=== PATIENT | female | born 1955 | race American Indian/Alaskan Native ===

== ENCOUNTER 2019-12-14 00:23 | Observation (INO) | payer OTHER ==
--- NOTE | 2019-12-14 00:56 | Emergency Department Report ---
ED Psych HPI - General Chief Complaint: Altered Mental Status Stated Complaint: AMS Time Seen by Provider: 12/14/19 00:48 Source: EMS Mode of arrival: Ambulatory Limitations: Altered Mental Status - History of Present Illness Initial Comments: This is a middle-aged appearing female who was found wandering up and down the road by Police officers. Police officers contacted EMS to transport patient. Patient asked to be taken to the nearest hospital. Upon arrival patient refuses to give any history. MD Complaint: altered mental status -: unknown Quality: constant Improves With: none Worsens With: none Context: other (Patient refused to give history) Treatments Prior to Arrival: none - Related Data Allergies Allergy/AdvReac Type Severity Reaction Status Date / Time Unable to Assess Allergy Unverified 12/14/19 00:29 ED Review of Systems ROS: Stated complaint: AMS Other details as noted in HPI Comment: Unobtainable due to pts medical conditions (Patient will not cooperate with history taking) ED Past Medical Hx - Past Medical History Additional medical history: uanble to obtain - Surgical History Additional Surgical History: unable to obtain - Social History Smoking Status: Unknown if ever smoked ED Physical Exam - General Limitations: Altered Mental Status General appearance: alert, in no apparent distress, other (She has purposeful movement. She pushes my hand away while attempting to examine her. She refuses to make eye contact. Disheveled hair. Dirty clothing.) - Head Head exam: Present: atraumatic, normocephalic - Eye Eye exam: Present: normal appearance. Absent: scleral icterus, conjunctival injection - ENT ENT exam: Present: mucous membranes moist - Neck Neck exam: Present: normal inspection, full ROM - Respiratory Respiratory exam: Present: normal lung sounds bilaterally. Absent: respiratory distress, wheezes, rales, rhonchi - Cardiovascular Cardiovascular Exam: Present: regular rate, normal rhythm. Absent: systolic murmur, diastolic murmur, rubs, gallop - GI/Abdominal GI/Abdominal exam: Present: soft, normal bowel sounds. Absent: distended, tenderness, guarding, rebound - Extremities Exam Extremities exam: Present: normal inspection - Neurological Exam Neurological exam: Present: alert, altered - Psychiatric Psychiatric exam: Present: flat affect - Skin Skin exam: Present: warm, dry, intact, normal color. Absent: rash ED Course Vital Signs 12/14/19 00:39 Respiratory 18 Rate - Reevaluation(s) Reevaluation #1: 12/14/19 01:48 I have observed patient responding to internal stimuli. She is speaking to persons that are not in here vicinity. Reevaluation #2: 12/14/19 02:35 On reexamination, patient is laying on stretcher semiupright She is looking to the right talking to someone who was not in the room. Reevaluation #3: 12/14/19 03:32 After IM ziprasidone, patient is awake. She makes eye contact. She has purposeful movement. However she is still nonverbal. ED Medical Decision Making - Lab Data Result diagrams: 12/14/19 01:15 12/14/19 01:15 - Medical Decision Making This is a middle-aged appearing female who presents with odd behavior. She presented without identification. She was ambulatory according to knot tying operator report. She spoke to paramedics requesting to go to the nearest hospital. She refuses to give history or speak to ED staff. I suspect illicit drug use versus acute exacerbation of psychiatric condition. She does not appear to be in any distress. Work-up revealed profound leukocytosis, prerenal azotemia. Differential diagnosis includes sepsis, leukemoid reaction to illicit drug or prescribed medication, hematological malignancy. I have requested consultation by case management and our psychiatric team for assistance and possible collateral history. After extensive investigation by nursing instrument repairer steam plant, we have identified patient as Keara Morrow. Patient was identified after 3 hours of observation in the emergency department. Patient has a history of dementia schizophrenia according to personal-shelterhome based assistant. Patient had wandered from personal shelter. Missing persons report was filed. According to the personal shelterhome based assistant, patient has not been talking or eating. She is not taking her psychiatric medications. I reviewed discharge summary from July. Patient was admitted to our geriatric psych unit. She had similar presentation. Patient had leukocytosis at that time. I suspect leukemoid reaction caused by psych otropic medications. Acute kidney injury caused by volume contraction decreased p.o. intake. Patient admitted to the hospital service in stable condition. After patient received Geodon lorazepam diphenhydramine, she is more conversant. She is asking appropriate questions. She has been more cooperative with nursing staff. Critical care attestation.: If time is entered above; I have spent that time in minutes in the direct care of this critically ill patient, excluding procedure time. ED Disposition Clinical Impression: Acute psychosis, Leukemoid reaction, Prerenal acute renal failure, Schizophrenia, Dementia Disposition: DC-[id number] OP ADMIT IP TO THIS HOSP Is pt being admited?: Yes Does the pt Need Aspirin: No Condition: Stable
[2019-12-14 01:55] LABS: Hematocrit 43.2 % (30.3-42.9); Hemoglobin 13.9 gm/dl (10.1-14.3); Mean Corpuscular HGB Conc 32 % (30-34); Mean Corpuscular Volume 93 fl (79-97); Platelet Count 124 K/mm3 (140-440); Red Blood Count 4.65 M/mm3 (3.65-5.03); Red Cell Distribution Width 15.5 % (13.2-15.2)
[2019-12-14 02:02] LABS: Calcium 10.5 mg/dL (8.4-10.2)
[2019-12-14] MEDS ORDERED: ZIPRASIDONE MESYLATE 20 MG VIAL IM ONE (02:30)
[2019-12-14] MEDS ORDERED: VANCOMYCIN/NS 1 GM/250 ML 1 GM/250 ML BAG IV ONE (02:31)
[2019-12-14] MEDS ORDERED: SODIUM CHLORIDE 0.9% 1000 ML 1,000 ML IV ONE ×2 (02:41)
--- NOTE | 2019-12-14 02:56 | XRay Report ---
CHEST 1 VIEW INDICATION / CLINICAL INFORMATION: altered mental status leukocytosis. COMPARISON: None available. FINDINGS: SUPPORT DEVICES: None. HEART / MEDIASTINUM: No significant abnormality. LUNGS / PLEURA: No significant pulmonary or pleural abnormality. No pneumothorax. ADDITIONAL FINDINGS: No significant additional findings. IMPRESSION: 1. No acute findings. Signer Name: Torrie Peacock MD Signed: 12/14/2019 2:51 AM Workstation Name: [id number]
[2019-12-14] MEDS ORDERED: AMPICILLIN/NS 2 GM/100 ML 2 GM/100 ML BAG IV SCH ×2 (03:00)
[2019-12-14] MEDS ORDERED: cefTRIAXone/NS 2 GM/100 ML 2 GM/100 ML BAG IV SCH (03:00)
[2019-12-14] MEDS ORDERED: VANCOMYCIN PHARMACY TO DOSE IV SCH (03:00)
[2019-12-14 03:23] LABS: Alanine Aminotransferase 10 units/L (7-56); Albumin 4.8 g/dL (3.9-5); Bilirubin,Direct < 0.2 mg/dL (0-0.2)
[2019-12-14 03:25] LABS: Partial Thromboplastin Time 28.6 Sec. (24.2-36.6)
[2019-12-14] MEDS ORDERED: diphenhydrAMINE 50 MG/ML VIAL IM ONE (03:32)
[2019-12-14] MEDS ORDERED: LORazepam 2 MG/ML VIAL IV ONE (03:32)
[2019-12-14] MEDS ORDERED: LORazepam 2 MG/ML VIAL IM ONE (03:33)
[2019-12-14 05:32] LABS: Anisocytosis 1+; Basophils % (Manual) 0 % (0.0-1.8); Eosinophils % (Manual) 0 % (0.0-4.3); Monocytes % (Manual) 3.5 % (0.0-7.3); Total Cells Counted 200
[2019-12-14 05:33] LABS: Platelet Estimate Consistent w Auto
[2019-12-14] MEDS ORDERED: ONDANSETRON 4 MG/2 ML INJ IV PRN (07:50)
[2019-12-14] MEDS ORDERED: ACETAMINOPHEN 325 MG TAB PO PRN (07:50)
[2019-12-14] MEDS ORDERED: ALBUTEROL 2.5 MG/3 ML NEBU IH PRN (07:50)
--- NOTE | 2019-12-14 07:55 | History and Physical Report ---
History of Present Illness Date of examination: 12/14/19 Date of admission: 12/14/19 04:17 Chief complaint: AMS History of present illness: Patient is a 64 year old female with past medical hx of schizophrenia, Bipolar, paranoid, catatonic type, dementia. She has had multiple bouts of admissions to multiple hospitals including [facility], with [facility], [facility], there was also concern in her few years that she may have leukemia although unfortunately has not been followed by any manager of radiology as the recommendation from Dr. FE Ro could not be carried out as patient does not have an ID card. Per caregiver the patient left the house and they had filed a missing piece present report. The patient was subsequently found wandering up and down the road by Police officers. Police officers contacted EMS to transport patient. Patient asked to be taken to the nearest hospital. Upon arrival patient refuses to give any history. And according to the ED physician After extensive investigation by nursing steam hand, we have identified patient as Keara Morrow. Patient was identified after 3 hours of observation in the emergency department. Patient has a history of dementia schizophrenia according to personal-half-wayhomebirth midwife. Patient had wandered from personal half-way. Missing persons report was filed. According to the personal half-wayhomebirth midwife, patient has not been talking or eating. She is not taking her psychiatric medications. I reviewed discharge summary from July. Patient was admitted to our geriatric psych unit. She had similar presentation. Patient had leukocytosis at that time. I suspect leukemoid reaction caused by psychotropic medications. Acute kidney injury caused by volume contraction decreased p.o. intake. Patient admitted to the hospital service in stable condition. After patient received Geodon lorazepam diphenhydramine, she is more conversant. She is asking appropriate questions. She has been more cooperative with nursing staff. Were called to admit the patient as WBC was significantly elevated and there was concern for severe dehydration. On my discussion with the patient she refused to answer any questions. I did call the provider myself she will be sending records over. But does tell me that the patient Has had multiple bouts of acute exacerbation of her psychiatric conditions. She normally will do well after 1 week post hospitalization and they refused to take the medication stating that she is competent to stop medications. She believes that the patient hears voices as the patient would often tell her that she was informed to do certain things. She is unable to inform me of any suicidal attempt in the past. she informs me that the patient has 2 grown children and a grandmother but does not have the information readily available with her Past History Past Medical History: other (Bipolar disorder, schizophrenia, paranoid, catatonic) Past Surgical History: No surgical history Social history: no significant social history, full code Family history: no significant family history Medications and Allergies Allergies Allergy/AdvReac Type Severity Reaction Status Date / Time No Known Allergies Allergy Verified 12/14/19 06:13 Active Meds: Active Medications Acetaminophen (Tylenol) 650 mg PO Q4H PRN PRN Reason: Pain MILD(1-3)/Fever >100.5/SMART Albuterol (Proventil) 2.5 mg IH Q4HRT PRN PRN Reason: Shortness Of Breath Bisacodyl (Dulcolax) 10 mg [place] QDAY PRN PRN Reason: Constipation unrelieved by MOM Sodium Chloride (Nacl 0.9% 1000 Ml) 1,000 mls @ 0 mls/hr IV ONCE MELISSA Stop: 12/15/19 08:01 Ondansetron HCl (Zofran) 4 mg IV Q8H PRN PRN Reason: Nausea And Vomiting Sodium Chloride (Sodium Chloride Flush Syringe 10 Ml) 10 ml IV PRN PRN PRN Reason: LINE FLUSH Review of Systems ROS unobtainable: due to mental status Exam - Physical Exam Narrative exam: VITAL SIGNS: Reviewed. GENERAL: The patient appears normally developed, position not answering question vital signs as documented. HEAD: No signs of head trauma. EYES: Pupils are equal. Extraocular motions intact. EARS: Hearing grossly intact. MOUTH: Oropharynx is normal. NECK: No adenopathy, no JVD. CHEST: Chest with diminished breath sounds bilaterally. No wheezes, rales, or rhonchi. CARDIAC: Regular rate and rhythm. S1 and S2, without murmurs, gallops, or rubs. VASCULAR: No Edema. Peripheral pulses normal and equal in all extremities. ABDOMEN: Soft, non tender and non distended. No rebound or guarding, and no masses palpated. Bowel Sounds normal. MUSCULOSKELETAL: Good range of motion of all major joints. Extremities without clubbing, cyanosis or edema. NEUROLOGIC EXAM: Awake but not following any commands. No focal sensory or strength deficits. PSYCHIATRIC: Mood catheter SKIN: Well-healed laceration over the left eyelid detail exam as documented in skin assessment - Constitutional Vitals: Temp Pulse Resp BP Pulse Ox 97.9 F 80 16 115/64 97 12/14/19 04:24 12/14/19 05:00 12/14/19 05:00 12/14/19 06:00 12/14/19 06:00 Results - Labs CBC & Chem 7: 12/14/19 01:15 12/14/19 01:15 Labs: Laboratory Last Values WBC 42.6 K/mm3 (4.5-11.0) H* 12/14/19 01:15 RBC 4.65 M/mm3 (3.65-5.03) 12/14/19 01:15 Hgb 13.9 gm/dl (10.1-14.3) 12/14/19 01:15 Hct 43.2 % (30.3-42.9) H 12/14/19 01:15 MCV 93 fl (79-97) 12/14/19 01:15 MCH 30 pg (28-32) 12/14/19 01:15 MCHC 32 % (30-34) 12/14/19 01:15 RDW 15.5 % (13.2-15.2) H 12/14/19 01:15 Plt Count 124 K/mm3 (140-440) L 12/14/19 01:15 Lymph % (Auto) Saw Sharpener 12/14/19 01:15 Lymph # Saw Sharpener 12/14/19 01:15 Add Manual Diff Complete 12/14/19 01:15 Total Counted 200 12/14/19 01:15 Seg Neutrophils % Saw Sharpener 12/14/19 01:15 Seg Neuts % (Manual) 9.5 % (40.0-70.0) L 12/14/19 01:15 Band Neutrophils % 0 % 12/14/19 01:15 Lymphocytes % (Manual) 85.0 % (13.4-35.0) H 12/14/19 01:15 Reactive Lymphs % (Man) 2.0 % 12/14/19 01:15 Monocytes % (Manual) 3.5 % (0.0-7.3) 12/14/19 01:15 Eosinophils % (Manual) 0 % (0.0-4.3) 12/14/19 01:15 Basophils % (Manual) 0 % (0.0-1.8) 12/14/19 01:15 Metamyelocytes % 0 % 12/14/19 01:15 Myelocytes % 0 % 12/14/19 01:15 Promyelocytes % 0 % 12/14/19 01:15 Blast Cells % 0 % 12/14/19 01:15 Nucleated RBC % Not Reportable 12/14/19 01:15 Seg Neutrophils # Man 4.0 K/mm3 (1.8-7.7) 12/14/19 01:15 Band Neutrophils # 0.0 K/mm3 12/14/19 01:15 Lymphocytes # (Manual) 36.2 K/mm3 (1.2-5.4) H 12/14/19 01:15 Abs React Lymphs (Man) 0.9 K/mm3 12/14/19 01:15 Monocytes # (Manual) 1.5 K/mm3 (0.0-0.8) H 12/14/19 01:15 Eosinophils # (Manual) 0.0 K/mm3 (0.0-0.4) 12/14/19 01:15 Basophils # (Manual) 0.0 K/mm3 (0.0-0.1) 12/14/19 01:15 Metamyelocytes # 0.0 K/mm3 12/14/19 01:15 Myelocytes # 0.0 K/mm3 12/14/19 01:15 Promyelocytes # 0.0 K/mm3 12/14/19 01:15 Blast Cells # 0.0 K/mm3 12/14/19 01:15 Hypersegmented Neuts Not Reportable 12/14/19 01:15 Hyposegmented Neuts Not Reportable 12/14/19 01:15 Hypogranular Neuts Not Reportable 12/14/19 01:15 Smudge Cells Not Reportable 12/14/19 01:15 Toxic Granulation Not Reportable 12/14/19 01:15 Toxic Vacuolation Not Reportable 12/14/19 01:15 Dohle Bodies Not Reportable 12/14/19 01:15 Pelger-Huet Anomaly Not Reportable 12/14/19 01:15 Leoncio Rods Not Reportable 12/14/19 01:15 Platelet Estimate Consistent w auto 12/14/19 01:15 Clumped Platelets Not Reportable 12/14/19 01:15 Plt Clumps, EDTA Not Reportable 12/14/19 01:15 Large Platelets Not Reportable 12/14/19 01:15 Giant Platelets Not Reportable 12/14/19 01:15 Platelet Satelliting Not Reportable 12/14/19 01:15 Plt Morphology Comment Not Reportable 12/14/19 01:15 RBC Morphology Not Reportable 12/14/19 01:15 Dimorphic RBCs Not Reportable 12/14/19 01:15 Polychromasia Not Reportable 12/14/19 01:15 Hypochromasia Not Reportable 12/14/19 01:15 Poikilocytosis Not Reportable 12/14/19 01:15 Anisocytosis 1+ 12/14/19 01:15 Microcytosis Not Reportable 12/14/19 01:15 Macrocytosis Not Reportable 12/14/19 01:15 Spherocytes Not Reportable 12/14/19 01:15 Pappenheimer Bodies Not Reportable 12/14/19 01:15 Sickle Cells Not Reportable 12/14/19 01:15 Target Cells Not Reportable 12/14/19 01:15 Tear Drop Cells Not Reportable 12/14/19 01:15 Ovalocytes Not Reportable 12/14/19 01:15 Helmet Cells Not Reportable 12/14/19 01:15 George-Adin Bodies Not Reportable 12/14/19 01:15 [place] Rings Not Reportable 12/14/19 01:15 [place] Cells Not Reportable 12/14/19 01:15 Bite Cells Not Reportable 12/14/19 01:15 Crenated Cell Not Reportable 12/14/19 01:15 Elliptocytes Not Reportable 12/14/19 01:15 Acanthocytes (Spur) Not Reportable 12/14/19 01:15 Rouleaux Not Reportable 12/14/19 01:15 Hemoglobin C Crystals Not Reportable 12/14/19 01:15 Schistocytes Not Reportable 12/14/19 01:15 Malaria parasites Not Reportable 12/14/19 01:15 Alec Bodies Not Reportable 12/14/19 01:15 Hem Pathologist Commnt Sent to pathology 12/14/19 01:15 PT 13.3 Sec. (12.2-14.9) 12/14/19 03:03 INR 1.00 (0.87-1.13) 12/14/19 03:03 APTT 28.6 Sec. (24.2-36.6) 12/14/19 03:03 Sodium 139 mmol/L (137-145) 12/14/19 01:15 Potassium 5.2 mmol/L (3.6-5.0) H 12/14/19 01:15 Chloride 97.1 mmol/L (98-107) L 12/14/19 01:15 Carbon Dioxide 22 mmol/L (22-30) 12/14/19 01:15 Anion Gap 25 mmol/L 12/14/19 01:15 BUN 46 mg/dL (7-17) H 12/14/19 01:15 Creatinine 2.0 mg/dL (0.6-1.2) H 12/14/19 01:15 Estimated GFR 26 ml/min 12/14/19 01:15 BUN/Creatinine Ratio 23 % 12/14/19 01:15 Glucose 99 mg/dL (65-100) 12/14/19 01:15 Lactic Acid 1.00 mmol/L (0.7-2.0) 12/14/19 05:09 Calcium 10.5 mg/dL (8.4-10.2) H 12/14/19 01:15 Total Bilirubin 0.30 mg/dL (0.1-1.2) 12/14/19 01:15 Direct Bilirubin < 0.2 mg/dL (0-0.2) 12/14/19 01:15 Indirect Bilirubin 0.1 mg/dL 12/14/19 01:15 AST 15 units/L (5-40) 12/14/19 01:15 ALT 10 units/L (7-56) 12/14/19 01:15 Alkaline Phosphatase 108 units/L (35-129) 12/14/19 01:15 Ammonia 22.0 umol/L (25-60) L 12/14/19 05:09 Total Creatine Kinase 45 units/L (30-135) 12/14/19 01:15 Total Protein 7.6 g/dL (6.3-8.2) 12/14/19 01:15 Albumin 4.8 g/dL (3.9-5) 12/14/19 01:15 Albumin/Globulin Ratio 1.7 % 12/14/19 01:15 Salicylates < 0.3 mg/dL (2.8-20.0) L 12/14/19 01:15 Acetaminophen 5.0 ug/mL (10.0-30.0) L 12/14/19 01:15 Plasma/Serum Alcohol < 0.01 % (0-0.07) 12/14/19 01:15 Assessment and Plan Assessment and plan: Patient is a 64 year old female with past medical hx of schizophrenia, Bipolar, paranoid, catatonic type, dementia. She has had multiple bouts of admissions to multiple hospitals including [facility], with [facility], [facility], there was also concern in her few years that she may have leukemia although unfortunately has not been followed by any manager of radiology as the recommendation from Dr. FE Ro could not be carried out as patient does not have an ID card. Per caregiver the patient left the house and they had filed a missing piece present report. The patient was subsequently found wandering up and down the road by Police officers. Police officers contacted EMS to transport patient. Patient asked to be taken to the nearest hospital. Upon arrival patient refuses to give any history. And according to the ED physician After extensive investigation by nursing steam hand, we have identified patient as Keara Morrow. Patient was identified after 3 hours of observation in the emergency department. Patient has a history of dementia schizophrenia according to personal-half-wayhomebirth midwife. Patient had wandered from personal half-way. Missing persons report was filed. According to the personal half-way mo pervisor, patient has not been talking or eating. She is not taking her psychiatric medications. I reviewed discharge summary from July. Patient was admitted to our geriatric psych unit. She had similar presentation. Patient had leukocytosis at that time. I suspect leukemoid reaction caused by psychotropic medications. Acute kidney injury caused by volume contraction decreased p.o. intake. Patient admitted to the hospital service in stable condition. After patient received Geodon lorazepam diphenhydramine, she is more conversant. She is asking appropriate questions. She has been more cooperative with nursing staff. Were called to admit the patient as WBC was significantly elevated and there was concern for severe dehydration. On my discussion with the patient she refused to answer any questions. I did call the provider myself she will be sending records over. But does tell me that the patient Has had multiple bouts of acute exacerbation of her psychiatric conditions. She normally will do well after 1 week post hospitalization and they refused to take the medication stating that she is competent to stop medications. She believes that the patient hears voices as the patient would often tell her that she was informed to do certain things. She is unable to inform me of any suicidal attempt in the past. she informs me that the patient has 2 grown children and a grandmother but does not have the information readily available with her Head CT is unremarkable Chest x-ray unremarkable Acute psychosis, Leukemoid reaction, versus leukemia Acute kidney injury likely secondary to vasomotor nephropathy Severe dehydration Schizophrenia, Dementia Hyperkalemia Hypercalcemia Elevated free T4 with normal TSH Plan Admit to telemetry Mental health consult Aggressive fluid resuscitation Repeat BMP CBC today We will review to see if new telemetry manager of radiology has resumed will give a consult to them. Restraints if needed DVT and GI prophylaxis Awaiting records from outpatient facilities to be able to restart appropriate medications. For now patient received antibiotics in the ED will not give any further antibiotics. Advance Directives: Yes Plan of care discussed with patient/family: Yes
[2019-12-14] MEDS ORDERED: SODIUM CHLORIDE 0.9% 1000 ML 1,000 ML IV SCH ×2 (08:00→12:30)
--- NOTE | 2019-12-14 08:50 | Cat Scan Report ---
CT HEAD WITHOUT CONTRAST INDICATION / CLINICAL INFORMATION: ams. TECHNIQUE: All CT scans at this location are performed using CT dose reduction for ALARA by means of automated e xposure control. COMPARISON: None available. FINDINGS: HEMORRHAGE: None. EXTRA-AXIAL SPACES: Normal in size and morphology for the patient's age. VENTRICULAR SYSTEM: Normal in size and morphology for the patient's age. CEREBRAL PARENCHYMA: No significant abnormality. No acute territorial infarct. MIDLINE SHIFT OR HERNIATION: None. CEREBELLUM / BRAINSTEM: No significant abnormality. ORBITS: Normal as visualized. SOFT TISSUES of HEAD: No significant abnormality. CALVARIUM: No significant abnormality. PARANASAL SINUSES / MASTOID AIR CELLS: Normal as visualized. ADDITIONAL FINDINGS: None. IMPRESSION: No acute intracranial abnormality. Signer Name: Aaron Riggins MD Signed: 12/14/2019 8:46 AM Workstation Name: [id number]
[2019-12-14] MEDS ORDERED: diphenhydrAMINE 25 MG CAP PO PRN (13:51)
[2019-12-14] MEDS: risperiDONE 1 MG TAB PO SCH (23:43)
[2019-12-14] MEDS: MIRTAZAPINE 15 MG TAB PO SCH (23:43)
[2019-12-14] MEDS: clonazePAM 0.5 MG TAB PO SCH (23:43)
[2019-12-15] MEDS: VENLAFAXINE XR 75 MG CAP PO SCH (11:03)
[2019-12-15] MEDS: risperiDONE 1 MG TAB PO SCH ×2 (11:04→21:33)
[2019-12-15] MEDS: clonazePAM 0.5 MG TAB PO SCH ×2 (11:04→21:33)
--- NOTE | 2019-12-15 15:08 | Progress Note ---
Assessment and Plan Assessment and plan: Patient is a 64 year old female with past medical hx of schizophrenia, Bipolar, paranoid, catatonic type, dementia. She has had multiple bouts of admissions to multiple hospitals including [facility], with [facility], [facility], there was also concern in her few years that she may have leukemia although unfortunately has not been followed by any product assembler as the recommendation from Dr. FE Ro could not be carried out as patient does not have an ID card. Per caregiver the patient left the house and they had filed a missing piece present report. The patient was subsequently found wandering up and down the road by Police officers. Police officers contacted EMS to tra nsport patient. Patient asked to be taken to the nearest hospital. Upon arrival patient refuses to give any history. And according to the ED physician After extensive investigation by nursing steam shovel oiler, we have identified patient as Keara Morrow. Patient was identified after 3 hours of observation in the emergency department. Patient has a history of dementia schizophrenia according to personal-mcchomemaking rehabilitation consultant. Patient had wandered from personal mcc. Missing persons report was filed. According to the personal mcchomemaking rehabilitation consultant, patient has not been talking or eating. She is not taking her psychiatric medications. I reviewed discharge summary from July. Patient was admitted to our geriatric psych unit. She had similar presentation. Patient had leukocytosis at that time. I suspect leukemoid reaction caused by psychotropic medications. Acute kidney injury caused by volume contraction decreased p.o. intake. Patient admitted to the hospital service in stable condition. After patient received Geodon lorazepam diphenhydramine, she is more conversant. She is asking appropriate questions. She has been more cooperative with nursing staff. Were called to admit the patient as WBC was significantly elevated and there was concern for severe dehydration. On my discussion with the patient she refused to answer any questions. I did call the provider myself she will be sending records over. But does tell me that the patient Has had multiple bouts of acute exacerbation of her psychiatric conditions. She normally will do well after 1 week post hospitalization and they refused to take the medication stating that she is competent to stop medications. She believes that the patient hears voices as the patient would often tell her that she was informed to do certain things. She is unable to inform me of any suicidal attempt in the past. The career center advisor she informs me that the patient has 2 grown children and a grandmother but does not have the information readily available with her 12/14: Remains aphasic refusing to answer questions. Flow cytometry sent out, Outpatient product assembler on discharge as arranged by previous hospital. WBC at the other facility a month ago was 44K. No other medical issues, patient is cleared for discharge to Inpatient psych or based on psych recommendation. Head CT is unremarkable Chest x-ray unremarkable Acute psychosis, Leukemoid reaction, versus leukemia Acute kidney injury likely secondary to vasomotor nephropathy Severe dehydration Schizophrenia, Dementia Hyperkalemia Hypercalcemia Elevated free T4 with normal TSH Plan Admit to telemetry Mental health consult Aggressive fluid resuscitation Repeat BMP CBC today We will review to see if new telemetry product assembler has resumed will give a consult to them. Restraints if needed DVT and GI prophylaxis Awaiting records from outpatient facilities to be able to restart appropriate medications. For now patient received antibiotics in the ED will not give any further antibiotics. History Interval history: Patient seen and examined, very agitated and refusing meds. This is not unlike she did at other hospital Hospitalist Physical - Physical exam Narrative exam: VITAL SIGNS: Reviewed. GENERAL: The patient appears normally developed, sitting up in bed and refusing to answer any question. vital signs as documented. HEAD: No signs of head trauma. EYES: Pupils are equal. Extraocular motions intact. EARS: Hearing grossly intact. MOUTH: Oropharynx is normal. NECK: No adenopathy, no JVD. CHEST: Chest with diminished breath sounds bilaterally. No wheezes, rales, or rhonchi. CARDIAC: Regular rate and rhythm. S1 and S2, without murmurs, gallops, or rubs. VASCULAR: No Edema. Peripheral pulses normal and equal in all extremities. ABDOMEN: Soft, non tender and non distended. No rebound or guarding, and no masses palpated. Bowel Sounds normal. MUSCULOSKELETAL: Good range of motion of all major joints. Extremities without clubbing, cyanosis or edema. NEUROLOGIC EXAM: Awake but not following any commands. No focal sensory or strength deficits. PSYCHIATRIC: Mood catheter SKIN: Well-healed laceration over the left eyelid detail exam as documented in skin assessment - Constitutional Vitals: Temp Pulse Resp BP Pulse Ox 97.8 F 73 16 117/82 98 12/14/19 22:02 12/14/19 22:02 12/14/19 22:02 12/14/19 22:02 12/15/19 10:50 Results - Labs CBC & Chem 7: 12/14/19 01:15 12/14/19 01:15 Labs: Laboratory Last Values WBC 42.6 K/mm3 (4.5-11.0) H* 12/14/19 01:15 RBC 4.65 M/mm3 (3.65-5.03) 12/14/19 01:15 Hgb 13.9 gm/dl (10.1-14.3) 12/14/19 01:15 Hct 43.2 % (30.3-42.9) H 12/14/19 01:15 MCV 93 fl (79-97) 12/14/19 01:15 MCH 30 pg (28-32) 12/14/19 01:15 MCHC 32 % (30-34) 12/14/19 01:15 RDW 15.5 % (13.2-15.2) H 12/14/19 01:15 Plt Count 124 K/mm3 (140-440) L 12/14/19 01:15 Lymph % (Auto) Derrick Boat Operator 12/14/19 01:15 Lymph # Derrick Boat Operator 12/14/19 01:15 Add Manual Diff Complete 12/14/19 01:15 Total Counted 200 12/14/19 01:15 Seg Neutrophils % Derrick Boat Operator 12/14/19 01:15 Seg Neuts % (Manual) 9.5 % (40.0-70.0) L 12/14/19 01:15 Band Neutrophils % 0 % 12/14/19 01:15 Lymphocytes % (Manual) 85.0 % (13.4-35.0) H 12/14/19 01:15 Reactive Lymphs % (Man) 2.0 % 12/14/19 01:15 Monocytes % (Manual) 3.5 % (0.0-7.3) 12/14/19 01:15 Eosinophils % (Manual) 0 % (0.0-4.3) 12/14/19 01:15 Basophils % (Manual) 0 % (0.0-1.8) 12/14/19 01:15 Metamyelocytes % 0 % 12/14/19 01:15 Myelocytes % 0 % 12/14/19 01:15 Promyelocytes % 0 % 12/14/19 01:15 Blast Cells % 0 % 12/14/19 01:15 Nucleated RBC % Not Reportable 12/14/19 01:15 Seg Neutrophils # Man 4.0 K/mm3 (1.8-7.7) 12/14/19 01:15 Band Neutrophils # 0.0 K/mm3 12/14/19 01:15 Lymphocytes # (Manual) 36.2 K/mm3 (1.2-5.4) H 12/14/19 01:15 Abs React Lymphs (Man) 0.9 K/mm3 12/14/19 01:15 Monocytes # (Manual) 1.5 K/mm3 (0.0-0.8) H 12/14/19 01:15 Eosinophils # (Manual) 0.0 K/mm3 (0.0-0.4) 12/14/19 01:15 Basophils # (Manual) 0.0 K/mm3 (0.0-0.1) 12/14/19 01:15 Metamyelocytes # 0.0 K/mm3 12/14/19 01:15 Myelocytes # 0.0 K/mm3 12/14/19 01:15 Promyelocytes # 0.0 K/mm3 12/14/19 01:15 Blast Cells # 0.0 K/mm3 12/14/19 01:15 Hypersegmented Neuts Not Reportable 12/14/19 01:15 Hyposegmented Neuts Not Reportable 12/14/19 01:15 Hypogranular Neuts Not Reportable 12/14/19 01:15 Smudge Cells Not Reportable 12/14/19 01:15 Toxic Granulation Not Reportable 12/14/19 01:15 Toxic Vacuolation Not Reportable 12/14/19 01:15 Dohle Bodies Not Reportable 12/14/19 01:15 Pelger-Huet Anomaly Not Reportable 12/14/19 01:15 Leoncio Rods Not Reportable 12/14/19 01:15 Platelet Estimate Consistent w auto 12/14/19 01:15 Clumped Platelets Not Reportable 12/14/19 01:15 Plt Clumps, EDTA Not Reportable 12/14/19 01:15 Large Platelets Not Reportable 12/14/19 01:15 Giant Platelets Not Reportable 12/14/19 01:15 Platelet Satelliting Not Reportable 12/14/19 01:15 Plt Morphology Comment Not Reportable 12/14/19 01:15 RBC Morphology Not Reportable 12/14/19 01:15 Dimorphic RBCs Not Reportable 12/14/19 01:15 Polychromasia Not Reportable 12/14/19 01:15 Hypochromasia Not Reportable 12/14/19 01:15 Poikilocytosis Not Reportable 12/14/19 01:15 Anisocytosis 1+ 12/14/19 01:15 Microcytosis Not Reportable 12/14/19 01:15 Macrocytosis Not Reportable 12/14/19 01:15 Spherocytes Not Reportable 12/14/19 01:15 Pappenheimer Bodies Not Reportable 12/14/19 01:15 Sickle Cells Not Reportable 12/14/19 01:15 Target Cells Not Reportable 12/14/19 01:15 Tear Drop Cells Not Reportable 12/14/19 01:15 Ovalocytes Not Reportable 12/14/19 01:15 Helmet Cells Not Reportable 12/14/19 01:15 [place] Bodies Not Reportable 12/14/19 01:15 [place] Rings Not Reportable 12/14/19 01:15 [place]ala Cells Not Reportable 12/14/19 01:15 Bite Cells Not Reportable 12/14/19 01:15 Crenated Cell Not Reportable 12/14/19 01:15 Elliptocytes Not Reportable 12/14/19 01:15 Acanthocytes (Spur) Not Reportable 12/14/19 01:15 Rouleaux Not Reportable 12/14/19 01:15 Hemoglobin C Crystals Not Reportable 12/14/19 01:15 Schistocytes Not Reportable 12/14/19 01:15 Malaria parasites Not Reportable 12/14/19 01:15 Alec Bodies Not Reportable 12/14/19 01:15 Hem Pathologist Commnt Sent to pathology 12/14/19 01:15 PT 13.3 Sec. (12.2-14.9) 12/14/19 03:03 INR 1.00 (0.87-1.13) 12/14/19 03:03 APTT 28.6 Sec. (24.2-36.6) 12/14/19 03:03 Sodium 139 mmol/L (137-145) 12/14/19 01:15 Potassium 5.2 mmol/L (3.6-5.0) H 12/14/19 01:15 Chloride 97.1 mmol/L (98-107) L 12/14/19 01:15 Carbon Dioxide 22 mmol/L (22-30) 12/14/19 01:15 Anion Gap 25 mmol/L 12/14/19 01:15 BUN 46 mg/dL (7-17) H 12/14/19 01:15 Creatinine 2.0 mg/dL (0.6-1.2) H 12/14/19 01:15 Estimated GFR 26 ml/min 12/14/19 01:15 BUN/Creatinine Ratio 23 % 12/14/19 01:15 Glucose 99 mg/dL (65-100) 12/14/19 01:15 Lactic Acid 1.00 mmol/L (0.7-2.0) 12/14/19 05:09 Calcium 10.5 mg/dL (8.4-10.2) H 12/14/19 01:15 Total Bilirubin 0.30 mg/dL (0.1-1.2) 12/14/19 01:15 Direct Bilirubin < 0.2 mg/dL (0-0.2) 12/14/19 01:15 Indirect Bilirubin 0.1 mg/dL 12/14/19 01:15 AST 15 units/L (5-40) 12/14/19 01:15 ALT 10 units/L (7-56) 12/14/19 01:15 Alkaline Phosphatase 108 units/L (35-129) 12/14/19 01:15 Ammonia 22.0 umol/L (25-60) L 12/14/19 05:09 Total Creatine Kinase 45 units/L (30-135) 12/14/19 01:15 Total Protein 7.6 g/dL (6.3-8.2) 12/14/19 01:15 Albumin 4.8 g/dL (3.9-5) 12/14/19 01:15 Albumin/Globulin Ratio 1.7 % 12/14/19 01:15 TSH 3.890 mlU/mL (0.270-4.200) 12/14/19 10:00 Free T4 1.51 ng/dL (0.76-1.46) H 12/14/19 10:00 Salicylates < 0.3 mg/dL (2.8-20.0) L 12/14/19 01:15 Acetaminophen 5.0 ug/mL (10.0-30.0) L 12/14/19 01:15 Plasma/Serum Alcohol < 0.01 % (0-0.07) 12/14/19 01:15 Microbiology: Microbiology 12/14/19 05:09 Peripheral/Venous Blood Culture - Preliminary NO GROWTH AFTER 24 HOURS 12/14/19 05:09 Peripheral/Venous Blood Culture - Preliminary NO GROWTH AFTER 24 HOURS Gregory/IV: Voiding Method Toilet IV Catheter Type [Right Hand] INT / Saline Lock Active Medications - Current Medications Current Medications: Generic Name Dose Route Start Last Admin Trade Name Freq PRN Reason Stop Dose Admin Acetaminophen 650 mg 12/14/19 07:50 Tylenol PO Q4H PRN Pain MILD(1-3)/Fever >100.5/SMART Albuterol 2.5 mg 12/14/19 07:50 Proventil IH Q4H PRN Shortness Of Breath Bisacodyl 10 mg 12/14/19 07:50 Dulcolax [place] QDAY PRN Constipation unrelieved by MOM Clonazepam 0.5 mg 12/14/19 22:00 12/15/19 11:04 Klonopin PO Not Given BID MELISSA Diphenhydramine HCl 25 mg 12/14/19 13:51 Benadryl PO Q8H PRN Itching Haloperidol Lactate 5 mg 12/14/19 12:15 Haldol IM Q6H PRN Agitation Sodium Chloride 1,000 mls @ 125 mls/hr 12/14/19 12:30 Nacl 0.9% 1000 Ml IV DIRECT MELISSA Mirtazapine 15 mg 12/14/19 22:00 12/14/19 23:43 Remeron PO Not Given QHS MELISSA Ondansetron HCl 4 mg 12/14/19 07:50 Zofran IV Q8H PRN Nausea And Vomiting Risperidone 2 mg 12/14/19 22:00 12/15/19 11:04 Risperdal PO Not Given BID MELISSA Sodium Chloride 10 ml 12/14/19 07:50 Sodium Chloride Flush Syringe 10 Ml IV PRN PRN LINE FLUSH Venlafaxine HCl 75 mg 12/15/19 10:00 12/15/19 11:03 Effexor Xr PO Not Given QDAY MELISSA Nutrition/Malnutrition Assess - Dietary Evaluation Nutrition/Malnutrition Findings: Nutrition Notes Start: 12/15/19 11:10 Freq: Status: Active Protocol: Document 12/15/19 11:10 LP (Rec: 12/15/19 11:44 LP [id number]) Nutrition Notes Need for Assessment generated from: MD Order,prefabricated houses trimmer,MST,Low BMI Initial or Follow up Assessment Current Diagnosis Acute Kidney Injury Other Pertinent Diagnosis dementia, dehydration, Schizophrenia Current Diet Regular Labs/Tests 12/14/19 K 5.2 BUN 46 Cr 2 Pertinent Medications NS at 125ml/hr Height 5 ft 5 in Weight 49.033 kg [place] Body Weight (kg) 56.81 BMI 17.9 Intake Prior to Admission Poor Weight change and time frame Noted with 40lb wt loss Weight Status Underweight Subjective/Other Information Consult for malnutrition. 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 Currently consuming 25% of meals. 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 No Is Patient Ambulatory and/or Out of Bed Yes REE-([facility]-ambulatory/OOB) [ 1353.573 NUTR.[id number]] Kcal/Kg value to use for calculation 31 Approximate Energy Requirements Using 1520 kcal/Kg Calculation Used for Recommendations Kcal/kg Additional Notes Protein needs are 59-74g (1.2- 1.5g/kg) Fluid needs are 1ml/kcal Nutrition Intervention Change Diet Order: Continue Add Supplement/Snack (indicate name/kcal Nepro daily /protein ) Provides kCal: 425 Provides Protein (gm) 19 Goal #1 Meet at least 75% of kcal and protein needs via meals and ONS Goal #2 Wt maintenance/gain Anticipated Discharge Needs: Regular diet with ONS as needed Follow-Up By: 12/17/19 Additional Comments Follow for intakes and ONS tolerance
[2019-12-15] MEDS: MIRTAZAPINE 15 MG TAB PO SCH (21:33)
[2019-12-16] MEDS: VENLAFAXINE XR 75 MG CAP PO SCH (10:00)
[2019-12-16] MEDS: clonazePAM 0.5 MG TAB PO SCH (10:00)
[2019-12-16] MEDS: risperiDONE 1 MG TAB PO SCH (10:00)
--- NOTE | 2019-12-16 15:06 | Progress Note ---
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 For now patient received antibiotics in the ED will not give any further antibiotics. 12/14: Remains aphasic refusing to answer questions. Flow cytometry sent out, Outpatient neurology director on discharge as arranged by previous hospital. WBC at the other facility a month ago was 44K. No other medical issues, patient is cleared for discharge to Inpatient psych or based on psych recommendation. 12/15: Patient's mental health needs to improve before she could be managed for possible underlying leukemia. Patient need to follow-up at neurology director and oncologist outpatient. medically stable for d/c. Will follow daily hematology recommendation Brief history: Patient is a 64 year old female with past medical hx of schizophrenia, Bipolar, paranoid, catatonic type, dementia. She has had multiple bouts of admissions to multiple hospitals including [facility], with [facility], [facility], there was also concern in her few years that she may have leukemia although unfortunately has not been followed by any neurology director as the recommendation from Dr. FE Ro could not be carried out as patient does not have an ID card. Per caregiver the patient left the house and they had filed a missing police report. The patient was subsequently found wandering up and down the road by Police officers. Police officers contacted EMS to transport naveen ent. Patient asked to be taken to the nearest hospital. Upon arrival patient refuses to give any history. hospitalist was called to admit the patient as WBC was significantly elevated and there was concern for severe dehydration. The career guidance technician informed that the patient has 2 grown children and a grandmother but does not have the information readily available with her Head CT is unremarkable Chest x-ray unremarkable Subjective Date of service: 12/16/19 Interval history: Patient seen and examined. Medical records and medication list reviewed. No acute event overnight noted by the RN. Patient nonverbal and does not answer any question. Patient is tolerating diet. Discussed plan of care at bedside with patient"s RN. She has been refusing labs and refusing medications Objective - Exam Narrative Exam: VITAL SIGNS: Reviewed. GENERAL: The patient appears normally developed, sitting up in bed and refusing to answer any question. vital signs as documented. HEAD: No signs of head trauma. EYES: Pupils are equal. Extraocular motions intact. EARS: Hearing grossly intact. MOUTH: Oropharynx is normal. NECK: No adenopathy, no JVD. CHEST: Chest with diminished breath sounds bilaterally. No wheezes, rales, or rhonchi. CARDIAC: Regular rate and rhythm. S1 and S2, without murmurs, gallops, or rubs . VASCULAR: No Edema. Peripheral pulses normal and equal in all extremities. ABDOMEN: Soft, non tender and non distended. No rebound or guarding, and no masses palpated. Bowel Sounds normal. MUSCULOSKELETAL: Good range of motion of all major joints. Extremities without clubbing, cyanosis or edema. NEUROLOGIC EXAM: Awake but not following any commands. No focal sensory or strength deficits. PSYCHIATRIC: Mood catheter SKIN: Well-healed laceration over the left eyelid - Labs CBC & Chem 7: 12/14/19 01:15 12/14/19 01:15
[2019-12-17] MEDS: MIRTAZAPINE 15 MG TAB PO SCH ×2 (00:51→22:27)
[2019-12-17] MEDS: clonazePAM 0.5 MG TAB PO SCH ×3 (00:51→22:27)
[2019-12-17] MEDS: risperiDONE 1 MG TAB PO SCH ×3 (00:51→22:27)
[2019-12-17] MEDS: VENLAFAXINE XR 75 MG CAP PO SCH (10:00)
--- NOTE | 2019-12-17 11:48 | Consultation ---
History of Present Illness - Reason for Consult Consult date: 12/17/19 Reason for consult: refusing meds, care - Chief Complaint Chief complaint: AMS - History of Present Psychiatric Illness The patient's medical record was reviewed and the patient's progress was discussed with the nursing staff. The nurse caring for the patient states the patient refuses medication, vitals and treatment. The nurse note states the patient introduced herself as Keara Morrow. Continues to insist that she is mentally competent and doesn't need medications. Also admits that she is neither suicidal /homicidal. She also states that she would like for her to speak for her and his name is "[place] Senator Kenyon Paez" I asked for the phone number "Its in the phone book" she said. Pt appears to be paranoid and refusing to eat. Keara Morrow is a 64y/o female patient who was found wandering up and down the road by police, according to records. I attempted to interview the patient today. She is uncoooperative and avoidant. She was lying in bed with her eyes closed. The patient did not respond to me calling her name at all. I lightly touched the patient's leg and she snatched away. She continued to not acknowledge me when calling her name again. PAST PSYCHIATRIC HISTORY: Unable to obtain from patient PAST MEDICAL HISTORY: None reported Family Psychiatric History: None reported or documented SOCIAL HISTORY Unable to obtain from the patient REVIEW OF SYSTEMS Unable to assess MENTAL STATUS EXAMINATION Unable to assess ASSESSMENT Bipolar Disorder Disorder RECOMMENDATIONS Agree with currently prescribed meds Start Depakote 250mg po BID The patient can not refuse antipsychotics. Please give PRN IM haldol if refuses oral Sitter: Defer to primary Medical: per primary Disposition: Recommend acute inpatient psychiatric treatment once medically clear Will continue to follow Thank you for this consult. Please call with any questions or concerns. Medications and Allergies Allergies Allergy/AdvReac Type Severity Reaction Status Date / Time No Known Allergies Allergy Verified 12/14/19 06:13 Active Meds: Active Medications Acetaminophen (Tylenol) 650 mg PO Q4H PRN PRN Reason: Pain MILD(1-3)/Fever >100.5/SMART Albuterol (Proventil) 2.5 mg IH Q4H PRN PRN Reason: Shortness Of Breath Bisacodyl (Dulcolax) 10 mg UT QDAY PRN PRN Reason: Constipation unrelieved by MOM Clonazepam (Klonopin) 0.5 mg PO BID [facility] Last Admin: 12/17/19 00:51 Dose: Not Given Documented by: Diphenhydramine HCl (Benadryl) 25 mg PO Q8H PRN PRN Reason: Itching Haloperidol Lactate (Haldol) 5 mg IM Q6H PRN PRN Reason: Agitation Sodium Chloride (Nacl 0.9% 1000 Ml) 1,000 mls @ 125 mls/hr IV DIRECT [facility] Mirtazapine (Remeron) 15 mg PO QHS [facility] Last Admin: 12/17/19 00:51 Dose: Not Given Documented by: Ondansetron HCl (Zofran) 4 mg IV Q8H PRN PRN Reason: Nausea And Vomiting Risperidone (Risperdal) 2 mg PO BID [facility] Last Admin: 12/17/19 00:51 Dose: Not Given Documented by: Sodium Chloride (Sodium Chloride Flush Syringe 10 Ml) 10 ml IV PRN PRN PRN Reason: LINE FLUSH Venlafaxine HCl (Effexor Xr) 75 mg PO QDAY [facility] Last Admin: 12/16/19 10:00 Dose: Not Given Documented by: Mental Status Exam - Vital signs Last Vital Signs Temp 97.8 F 12/14/19 22:02 Pulse 73 12/14/19 22:02 Resp 16 12/14/19 22:02 BP 117/82 12/14/19 22:02 Pulse Ox 98 12/15/19 10:50 Results Result Diagrams: 12/14/19 01:15 12/14/19 01:15 All other labs normal.
[2019-12-17] MEDS: DIVALPROEX DR 250 MG TAB PO SCH ×2 (12:00→22:28)
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
[2019-12-18] MEDS: clonazePAM 0.5 MG TAB PO SCH ×2 (10:00→22:15)
[2019-12-18] MEDS: DIVALPROEX DR 250 MG TAB PO SCH ×2 (10:00→22:15)
[2019-12-18] MEDS: risperiDONE 1 MG TAB PO SCH ×2 (10:00→22:15)
--- NOTE | 2019-12-18 12:37 | Progress Note ---
Subjective - Reason for Consult Consult date: 12/18/19 Reason for consult: refusing treament, uncooperative - Chief Complaint Chief complaint: The patient's medical chart was reviewed and the patient's progress was discussed with the nursing staff. The nurse caring for the patient states the patient has been refusing treatment and care. She states the patient seems paranoid. She says the patient states, "you all want to kill me and I won't let you." I attempted to interview the patient this morning. She is sitting up in the middle of the bed staring straight ahead. She appears angry and paranoid. she has her linen in her hand and is fidgeting with it. The patient does not acknowledge me walking into the room. When I call her name she still doesn't respond. I reach to touch the patient, she quickly draws her feet up and states, "don't touch me, and don't refer to me by that name." The patient does not respond to any other questioning. As I'm leaving the room, she states, "I know exactly what you're trying to do." REVIEW OF SYSTEMS Unable to assess MENTAL STATUS EXAMINATION Unable to assess ASSESSMENT Bipolar Disorder Disorder RECOMMENDATIONS The patient can not refuse risperidone. Please give PRN IM haldol if refuses oral. This ensures compliance and will assist in mental health stabilization Sitter: Defer to primary Medical: per primary Disposition: Recommend acute inpatient psychiatric treatment once medically clear Will continue to follow Thank you for this consult. Please call with any questions or concerns. Mental Status Exam - Vital signs Last Vital Signs Temp 97.8 F 12/14/19 22:02 Pulse 73 12/14/19 22:02 Resp 16 12/14/19 22:02 BP 117/82 12/14/19 22:02 Pulse Ox 98 12/15/19 10:50
--- NOTE | 2019-12-18 16:25 | Discharge Summary ---
Providers - Providers Date of Admission: 12/14/19 04:17 Date of discharge: 12/21/19 Attending physician: MIAH ATWOOD 12/14/19 00:54 Consult to Mental Health [CONS] Stat Reason For Exam: acute psychosis Consult to Mental Health [CONS] Stat Reason For Exam: acute psychosis 12/14/19 13:51 Consult to Dietitian/Nutrition [CONS] Routine Physician Instructions: Reason For Exam: Reason for Consult: Malnutrition Primary care physician: CHIEF SUPPLY CHAIN OFFICER Hospitalization Condition: Stable Hospital course: Patient is a 64 year old female with past medical hx of schizophrenia, Bipolar, paranoid, catatonic type, dementia. She has had multiple bouts of admissions to multiple hospitals including [facility], with [facility]. There was also concern in few years that she may have leukemia although unfortunately has not been followed by any magnetic tester. Per caregiver the patient left the house and they had filed a missing police report. The patient was subsequently found wandering up and down the road by Police officers. Police officers contacted EMS to transport patient. Patient asked to be taken to the nearest hospital. Upon arrival patient refuses to give any history. hospitalist was called to admit the patient as WBC was significantly elevated and there was concern for severe dehydration. The child care associate informed that the patient has 2 grown children and a grandmother but does not have the information readily available with her. daily course: 12/14: Remains aphasic refusing to answer questions. Flow cytometry sent out, Outpatient magnetic tester on discharge as arranged by previous hospital. WBC at the other facility a month ago was 44K. No other medical issues, patient is cleared for discharge to Inpatient psych or based on psych recommendation. 12/15: Patient's mental health needs to improve before she could be managed for possible underlying leukemia. Patient need to follow-up at magnetic tester and oncologist outpatient. medically stable for d/c. Will follow inhouse telehematology recommendation 12/16: refusing labs. noncooperative during encounter. medically clear for inpt psych admission 12/17: d/c to inpt psych unit when bed available. need outpt heam/onc f/u for h/o CLL. 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 GENERAL: The patient appears normally developed, sitting up in bed and refusing to answer any question. vital signs as documented. HEAD: No signs of head trauma. EYES: Pupils are equal. Extraocular motions intact. EARS: Hearing grossly intact. MOUTH: Oropharynx is normal. NECK: No adenopathy, no JVD. CHEST: Chest with diminished breath sounds bilaterally. No wheezes, rales, or rhonchi. CARDIAC: Regular rate and rhythm. S1 and S2, without murmurs, gallops, or rubs. VASCULAR: No Edema. Peripheral pulses normal and equal in all extremities. ABDOMEN: Soft, non tender and non distended. No rebound or guarding, and no masses palpated. Bowel Sounds normal. MUSCULOSKELETAL: Good range of motion of all major joints. Extremities without clubbing, cyanosis or edema. NEUROLOGIC EXAM: Awake but not following any commands. No focal sensory or strength deficits. PSYCHIATRIC: Mood catheter SKIN: Well-healed laceration over the left eyelid - Constitutional Vitals: Temp Pulse Resp BP Pulse Ox 97.8 F 73 16 117/82 98 12/14/19 22:02 12/14/19 22:02 12/14/19 22:02 12/14/19 22:02 12/15/19 10:50 Plan Activity: advance as tolerated Weight Bearing Status: Non-Weight Bearing Diet: regular Additional Instructions: f/u with heamatology following d/c. f/u with [facility] psych department Follow up with: PRIMARY CAREMD [Primary Care Provider] - 3-5 Days Prescriptions: Haldol Decanoate 50 mg IM ONCE #1 MDD 1
[2019-12-18] MEDS: VENLAFAXINE XR 75 MG CAP PO SCH (18:00)
[2019-12-18] MEDS: HALOPERIDOL LACTATE 5 MG/1 ML INJ IM PRN (18:40)
[2019-12-18] MEDS: MIRTAZAPINE 15 MG TAB PO SCH (22:15)
[2019-12-19] MEDS: HALOPERIDOL LACTATE 5 MG/1 ML INJ IM PRN (00:46)
--- NOTE | 2019-12-19 08:47 | Progress Note ---
Subjective Date of service: 12/19/19 (catch-up eval--data review only) Principal diagnosis: CLL chronic lymphocytic leukemia Interval history: 64yo woman with schizophrenia per notes I was asked by Dr. Andrews to review and eval if possible ---- per notes she has had high WBC in the past now eval for wandering, brought to [facility], found to have high WBC 44,000 admitted and eval by internal medicine for clearance before psych admit since admission also found to have high Ca 10.5 and high potassium 5.2 Televisit Heme/Onc consultation was requested, but I was unable to do televisit because video cart access was not available. The patient received IVF. She refused more lab testing. She has been receiving haldol IM q6h. Since then the pt has been discharged from medicine admission-->planning psych admission. IMPRESSION: Chronic lymphocytic leukemia (CLL), maybe stage 0 (no imaging to review) Hypercalcemia is likely associated with/attributable to CLL not high enough to explain her degree of confusion (she has schizophrenia), but could be a contributor Hyperkalemia is likely "artifact" related to high WBC/CLL (even though WBC not so high) Doubt she will ever be a "candidate" for "long-term" anti-CLL therapy--neither oral nor infusions Stable for psychiatry admission from heme/onc perspective Borderline low plt count is likely assoc with CLL (ITP/assoc with CLL) RECOMMEND: No intervention planned/needed for CLL this week (and doubt she will ever received outpt treatment) In future hospitalizations consider pamidromate for hypercalcemia Stable for psychiatry admission from heme/onc perspective Flow cytometry testing requested/done from blood (I can't see results) If her psychiatric condition improves-->could consider rituxan/steroid pulse for CLL Active Medications Acetaminophen (Tylenol) 650 mg PO Q4H PRN PRN Reason: Pain MILD(1-3)/Fever >100.5/SMART Albuterol (Proventil) 2.5 mg IH Q4H PRN PRN Reason: Shortness Of Breath Bisacodyl (Dulcolax) 10 mg ID QDAY PRN PRN Reason: Constipation unrelieved by MOM Clonazepam (Klonopin) 0.5 mg PO BID MELISSA Last Admin: 12/18/19 22:15 Dose: Not Given Documented by: Diphenhydramine HCl (Benadryl) 25 mg PO Q8H PRN PRN Reason: Itching Divalproex Sodium (Depakote Dr) 250 mg PO BID [facility] Last Admin: 12/18/19 22:15 Dose: Not Given Documented by: Haloperidol Lactate (Haldol) 5 mg IM Q6H PRN PRN Reason: refusal of po Last Admin: 12/19/19 00:46 Dose: 5 mg Documented by: Sodium Chloride (Nacl 0.9% 1000 Ml) 1,000 mls @ 125 mls/hr IV DIRECT [facility] Mirtazapine (Remeron) 15 mg PO QHS [facility] Last Admin: 12/18/19 22:15 Dose: Not Given Documented by: Ondansetron HCl (Zofran) 4 mg IV Q8H PRN PRN Reason: Nausea And Vomiting Risperidone (Risperdal) 2 mg PO BID [facility] Last Admin: 12/18/19 22:15 Dose: Not Given Documented by: Sodium Chloride (Sodium Chloride Flush Syringe 10 Ml) 10 ml IV PRN PRN PRN Reason: LINE FLUSH Venlafaxine HCl (Effexor Xr) 75 mg PO QDAY [facility] Last Admin: 12/18/19 18:00 Dose: Not Given Documented by: Laboratory Last Values WBC 42.6 K/mm3 (4.5-11.0) H* 12/14/19 01:15 Hgb 13.9 gm/dl (10.1-14.3) 12/14/19 01:15 Hct 43.2 % (30.3-42.9) H 12/14/19 01:15 Plt Count 124 K/mm3 (140-440) L 12/14/19 01:15 Lymphocytes % (Manual) 85.0 % (13.4-35.0) H 12/14/19 01:15 Potassium 5.2 mmol/L (3.6-5.0) H 12/14/19 01:15 Creatinine 2.0 mg/dL (0.6-1.2) H 12/14/19 01:15 Calcium 10.5 mg/dL (8.4-10.2) H 12/14/19 01:15 Total Bilirubin 0.30 mg/dL (0.1-1.2) 12/14/19 01:15 Direct Bilirubin < 0.2 mg/dL (0-0.2) 12/14/19 01:15 Indirect Bilirubin 0.1 mg/dL 12/14/19 01:15 AST 15 units/L (5-40) 12/14/19 01:15 ALT 10 units/L (7-56) 12/14/19 01:15 Alkaline Phosphatase 108 units/L (35-129) 12/14/19 01:15 Ammonia 22.0 umol/L (25-60) L 12/14/19 05:09 Total Creatine Kinase 45 units/L (30-135) 12/14/19 01:15 Total Protein 7.6 g/dL (6.3-8.2) 12/14/19 01:15 Albumin 4.8 g/dL (3.9-5) 12/14/19 01:15 Albumin/Globulin Ratio 1.7 % 12/14/19 01:15 TSH 3.890 mlU/mL (0.270-4.200) 12/14/19 10:00 Free T4 1.51 ng/dL (0.76-1.46) H 12/14/19 10:00 Salicylates < 0.3 mg/dL (2.8-20.0) L 12/14/19 01:15 Acetaminophen 5.0 ug/mL (10.0-30.0) L 12/14/19 01:15 Plasma/Serum Alcohol < 0.01 % (0-0.07) 12/14/19 01:15 Flow Intrp 16+ Markers Scanned into [facility] 12/14/19 12:50 Flow Cytometry Interp Scanned into [facility] 12/14/19 12:50 Flow Cytometry Interp Scanned into [facility] 12/14/19 12:50 Objective - Constitutional Vitals: Vital Signs - 12hr 12/19/19 12/19/19 01:05 04:44 Temperature 96.2 F L 97.2 F L Pulse Rate 95 H 92 H Respiratory 20 16 Rate Blood Pressure 128/80 136/78 O2 Sat by Pulse 100 100 Oximetry - Labs CBC & Chem 7: 12/14/19 01:15 12/14/19 01:15 Medications & Allergies - Medications Allergies/Adverse Reactions: Allergies No Known Allergies Allergy (Verified 12/14/19 06:13) Home Medications: Home Medications Medication Instructions Recorded Confirmed Last Taken Type No Known Home Medications [No 12/18/19 12/18/19 Unknown History Reported Home Medications] Active Medications: Generic Name Dose Route Start Last Admin Trade Name Baldomero PRN Reason Stop Dose Admin Acetaminophen 650 mg 12/14/19 07:50 Tylenol PO Q4H PRN Pain MILD(1-3)/Fever >100.5/SMART Albuterol 2.5 mg 12/14/19 07:50 Proventil IH Q4H PRN Shortness Of Breath Bisacodyl 10 mg 12/14/19 07:50 Dulcolax ID QDAY PRN Constipation unrelieved by MOM Clonazepam 0.5 mg 12/14/19 22:00 12/18/19 22:15 Klonopin PO Not Given BID MELISSA Diphenhydramine HCl 25 mg 12/14/19 13:51 Benadryl PO Q8H PRN Itching Divalproex Sodium 250 mg 12/17/19 12:00 12/18/19 22:[address] PO Not Given BID MELISSA Haloperidol Lactate 5 mg 12/14/19 12:15 12/19/19 00:46 Haldol IM 5 mg Q6H PRN Administration refusal of po Sodium Chloride 1,000 mls @ 125 mls/hr 12/14/19 12:30 Nacl 0.9% 1000 Ml IV DIRECT MELISSA Mirtazapine 15 mg 12/14/19 22:00 12/18/19 22:15 Remeron PO Not Given QHS MELISSA Ondansetron HCl 4 mg 12/14/19 07:50 Zofran IV Q8H PRN Nausea And Vomiting Risperidone 2 mg 12/14/19 22:00 12/18/19 22:15 Risperdal PO Not Given BID MELISSA Sodium Chloride 10 ml 12/14/19 07:50 Sodium Chloride Flush Syringe 10 Ml IV PRN PRN LINE FLUSH Venlafaxine HCl 75 mg 12/15/19 10:00 12/18/19 18:00 Effexor Xr PO Not Given QDAY MELISSA
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
[2019-12-19] MEDS: DIVALPROEX DR 250 MG TAB PO SCH ×2 (10:33→22:35)
[2019-12-19] MEDS: VENLAFAXINE XR 75 MG CAP PO SCH (10:33)
[2019-12-19] MEDS: clonazePAM 0.5 MG TAB PO SCH ×2 (10:33→22:35)
[2019-12-19] MEDS: risperiDONE 1 MG TAB PO SCH ×2 (10:33→22:35)
[2019-12-19] MEDS: LORazepam 2 MG/ML VIAL IM SCH ×3 (13:23→22:14)
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
--- NOTE | 2019-12-19 21:03 | Progress Note ---
Subjective Date of service: 12/16/19 Principal diagnosis: CLL chronic lymphocytic leukemia Objective - Constitutional Vitals: Vital Signs - 12hr 12/19/19 10:00 O2 Sat by Pulse 100 Oximetry - Labs CBC & Chem 7: 12/14/19 01:15 12/14/19 01:15 Medications & Allergies - Medications Allergies/Adverse Reactions: Allergies No Known Allergies Allergy (Verified 12/14/19 06:13) Home Medications: Home Medications Medication Instructions Recorded Confirmed Last Taken Type No Known Home Medications [No 12/18/19 12/18/19 Unknown History Reported Home Medications] Active Medications: Generic Name Dose Route Start Last Admin Trade Name Freq PRN Reason Stop Dose Admin Acetaminophen 650 mg 12/14/19 07:50 Tylenol PO Q4H PRN Pain MILD(1-3)/Fever >100.5/SMART Albuterol 2.5 mg 12/14/19 07:50 Proventil IH Q4H PRN Shortness Of Breath Bisacodyl 10 mg 12/14/19 07:50 Dulcolax LA QDAY PRN Constipation unrelieved by MOM Clonazepam 0.5 mg 12/14/19 22:00 12/19/19 10:33 Klonopin PO Not Given BID MELISSA Diphenhydramine HCl 25 mg 12/14/19 13:51 Benadryl PO Q8H PRN Itching Divalproex Sodium 250 mg 12/17/19 12:00 12/19/19 10:[address] PO Not Given BID MELISSA Haloperidol Lactate 5 mg 12/14/19 12:15 12/19/19 00:46 Haldol IM 5 mg Q6H PRN Administration refusal of po Sodium Chloride 1,000 mls @ 125 mls/hr 12/14/19 12:30 Nacl 0.9% 1000 Ml IV DIRECT MELISSA Lorazepam 2 mg 12/19/19 14:00 12/19/19 17:31 Ativan IM 12/19/19 22:01 2 mg Q4HR MELISSA Administration Mirtazapine 15 mg 12/14/19 22:00 12/18/19 22:15 Remeron PO Not Given QHS MELISSA Ondansetron HCl 4 mg 12/14/19 07:50 Zofran IV Q8H PRN Nausea And Vomiting Risperidone 2 mg 12/14/19 22:00 12/19/19 10:33 Risperdal PO Not Given BID MELISSA Sodium Chloride 10 ml 12/14/19 07:50 Sodium Chloride Flush Syringe 10 Ml IV PRN PRN LINE FLUSH Venlafaxine HCl 75 mg 12/15/19 10:00 12/19/19 10:33 Effexor Xr PO Not Given QDAY MELISSA Ziprasidone 5 mg 12/19/19 22:00 Geodon IM 12/20/19 10:01 BID MELISSA
[2019-12-19] MEDS: ZIPRASIDONE MESYLATE 20 MG VIAL IM SCH (22:14)
[2019-12-19] MEDS: MIRTAZAPINE 15 MG TAB PO SCH (22:35)
--- NOTE | 2019-12-19 23:37 | Consultation ---
History of Present Illness - Reason for Consult Consult date: 12/19/19 CLL chronic lymphocytic leukemia - History of Present Illness Consult completed by televisit Subjective Date of service: 12/19/19 Principal diagnosis: CLL chronic lymphocytic leukemia HPI: 64yo woman with schizophrenia per notes per notes she has had high WBC in the past now eval for wandering, brought to [facility], found to have high WBC 44,000 admitted and eval by internal medicine for clearance before psych admit since admission also found to have high Ca 10.5 and high potassium 5.2 and creat 2.0 The patient received IVF. She refused more lab testing. She has been receiving haldol IM q6h. Since then the pt has been discharged from medicine admission-->planning psych admission. 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 12/14/19 01:15 Lymphocytes % (Manual) 85.0 % (13.4-35.0) H 12/14/19 01:15 Potassium 5.2 mmol/L (3.6-5.0) H 12/14/19 01:15 Creatinine 2.0 mg/dL (0.6-1.2) H 12/14/19 01:15 Calcium 10.5 mg/dL (8.4-10.2) H 12/14/19 01:15 Flow Cytometry Interp c/w CLL/SLL 12/14/19 12:50 IMPRESSION: Chronic lymphocytic leukemia (CLL), maybe stage 0 (no imaging to review) Hypercalcemia is likely associated with/attributable to CLL not high enough to explain her degree of confusion (she has schizophrenia), but could be a contributor Hyperkalemia is likely "artifact" related to high WBC/CLL (even though WBC not so high) Doubt she will ever be a "candidate" for "long-term" anti-CLL therapy--neither oral nor infusions Stable for psychiatry admission from heme/onc perspective Borderline low plt count is likely assoc with CLL (ITP/assoc with CLL) Chronic kidney disease is presumed (creat 2.0)--this could be related to CLL/SLL RECOMMEND: No intervention planned/needed for CLL this week (and doubt she will ever received outpt treatment) In future hospitalizations consider pamidromate for hypercalcemia Stable for psychiatry admission from heme/onc perspective If her psychiatric condition improves-->could consider rituxan/steroid pulse for CLL Past History Past Medical History: other (Bipolar disorder, schizophrenia, paranoid, catatonic) Past Surgical History: No surgical history Social history: no significant social history, full code Family history: no significant family history Medications and Allergies Allergies Allergy/AdvReac Type Severity Reaction Status Date / Time No Known Allergies Allergy Verified 12/14/19 06:13 Home Medications Medication Instructions Recorded Confirmed Last Taken Type No Known Home Medications [No 12/18/19 12/18/19 Unknown History Reported Home Medications] Active Meds: Active Medications Acetaminophen (Tylenol) 650 mg PO Q4H PRN PRN Reason: Pain MILD(1-3)/Fever >100.5/SMART Albuterol (Proventil) 2.5 mg IH Q4H PRN PRN Reason: Shortness Of Breath Bisacodyl (Dulcolax) 10 mg [place] QDAY PRN PRN Reason: Constipation unrelieved by MOM Clonazepam (Klonopin) 0.5 mg PO BID [facility] Last Admin: 12/19/19 22:35 Dose: Not Given Documented by: Diphenhydramine HCl (Benadryl) 25 mg PO Q8H PRN PRN Reason: Itching Divalproex Sodium (Depakote Dr) 250 mg PO BID [facility] Last Admin: 12/19/19 22:35 Dose: Not Given Documented by: Haloperidol Lactate (Haldol) 5 mg IM Q6H PRN PRN Reason: refusal of po Last Admin: 12/19/19 00:46 Dose: 5 mg Documented by: Sodium Chloride (Nacl 0.9% 1000 Ml) 1,000 mls @ 125 mls/hr IV DIRECT MELISSA Mirtazapine (Remeron) 15 mg PO QHS [facility] Last Admin: 12/19/19 22:35 Dose: Not Given Documented by: Ondansetron HCl (Zofran) 4 mg IV Q8H PRN PRN Reason: Nausea And Vomiting Risperidone (Risperdal) 2 mg PO BID [facility] Last Admin: 12/19/19 22:35 Dose: Not Given Documented by: Sodium Chloride (Sodium Chloride Flush Syringe 10 Ml) 10 ml IV PRN PRN PRN Reason: LINE FLUSH Venlafaxine HCl (Effexor Xr) 75 mg PO QDAY [facility] Last Admin: 12/19/19 10:33 Dose: Not Given Documented by: Ziprasidone (Geodon) 5 mg IM BID [facility] Stop: 12/20/19 10:01 Last Admin: 12/19/19 22:14 Dose: 5 mg Documented by: Exam - Constitutional Vitals: Temp Pulse Resp BP Pulse Ox 98.3 F 104 H 18 113/80 98 12/19/19 21:21 12/19/19 21:21 12/19/19 21:21 12/19/19 21:21 12/19/19 21:21 Results - Labs CBC & Chem 7: 12/14/19 01:15 12/14/19 01:15
--- NOTE | 2019-12-20 08:34 | Progress Note ---
Subjective - Reason for Consult Consult date: 12/20/19 Reason for consult: MHE Requesting physician: MIAH ATWOOD - Chief Complaint Chief complaint: Psych Progress HPI Patient seen this AM, spoke pleasantly, and said good morning. She reports her day was good, and she spoke to the hospital staff. Patient asked if i called her today, and she gave me a number that I tried and was not going through. Review of Symptoms: Constitutional: Negative for weight loss ENT: Negative for stridor Respiratory: Negative for cough or hemoptysis All other systems reviewed and are negative MENTAL STATUS EXAMINATION General Appearance and Behavior: Age appropriate, good hygiene, wearing appropriate clothes poor eye contact, uncooperative polite with questioning. Cooperation: Hostile and Guarded Psychomotor Behavior: psychomotor retardation Mood: im good Affect and affective range: flat Thought Process: preservative, Illogic Thought Content: Obessions Speech: slow, low toned Intellectual Functioning: Average Suicidal Ideation: Denies SI Homicidal Ideation: Denies HI Impulse Control: Impaired Insight and Judgment: Impaired Memory: memory impaired Attention: Normal Orientation: Alert, oriented, anxious Assessment and Plan - Patient Problems (1) Schizophrenia, paranoid Current Visit: Yes Status: Acute (2) Schizophrenia with prominent negative symptoms Current Visit: Yes Status: Acute RECOMMENDATIONS IM medications today, pt non compliant with oral meds and refused to not take them. MEDICATIONS: Risks, benefits and alternatives of medications discussed with the patient, questions answered and consent obtained from patient. PSYCHOTHERAPY: Supportive psychotherapy provided MEDICAL: Per primary team DELIRIUM PRECAUTIONS: Please re-orient patient frequently, keep lights on during the day, and minimize benzodiazepines and opiates as these medications could worsen patient's confusion. 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 Please contact with any questions and/or concerns. Mental Status Exam - Vital signs Last Vital Signs Temp 98.1 F 12/20/19 05:31 Pulse 91 H 12/20/19 05:31 Resp 18 12/20/19 05:31 BP 111/80 12/20/19 05:31 Pulse Ox 100 12/20/19 05:31 Assessment and Plan - Patient Problems (1) Schizophrenia, paranoid Current Visit: Yes Status: Acute (2) Schizophrenia with prominent negative symptoms Current Visit: Yes Status: Acute
[2019-12-20] MEDS: clonazePAM 0.5 MG TAB PO SCH ×2 (10:08→23:02)
[2019-12-20] MEDS: risperiDONE 1 MG TAB PO SCH ×2 (10:08→23:02)
[2019-12-20] MEDS: ZIPRASIDONE MESYLATE 20 MG VIAL IM SCH (10:08)
[2019-12-20] MEDS: DIVALPROEX DR 250 MG TAB PO SCH ×2 (10:09→23:02)
[2019-12-20] MEDS: VENLAFAXINE XR 75 MG CAP PO SCH (10:09)
--- NOTE | 2019-12-20 15:01 | Progress Note ---
Assessment and Plan Acute psychosis, CLL/SLL CD34 negative (based on flow cytometry) Acute kidney injury likely secondary to vasomotor nephropathy Severe dehydration Schizophrenia, Dementia Hyperkalemia Hypercalcemia Elevated free T4 with normal TSH Plan cont supportive care Mental health consult consult tele vp digital marketing social media and crm Restraints if needed DVT and GI prophylaxis Awaiting records from outpatient facilities to be able to restart appropriate medications. For now patient received antibiotics in the ED will not give any further antibiotics. 12/14: Remains aphasic refusing to answer questions. Flow cytometry sent out, Outpatient vp digital marketing social media and crm on discharge as arranged by previous hospital. WBC at the other facility a month ago was 44K. No other medical issues, patient is cleared for discharge to Inpatient psych or based on psych recommendation. 12/15: Patient's mental health needs to improve before she could be managed for possible underlying leukemia. Patient need to follow-up at vp digital marketing social media and crm and oncologist outpatient. medically stable for d/c. Will follow daily hematology recommendation 12/16: refusing labs. noncooperative during encounter. medically clear for inpt psych admission 12/17 d/c pending on inpt psych placement 12/18: d/c pending on inpt psych placement Brief history: Patient is a 64 year old female with past medical hx of schizophrenia, Bipolar, paranoid, catatonic type, dementia. She has had multiple bouts of admissions to multiple hospitals including [facility], with [facility], there was also concern in her few years that she may have leukemia although unfortunately has not been followed by any vp digital marketing social media and crm as the recommendation from Dr. FE Ro could not be carried out as patient does not have an ID card. Per caregiver the patient left the house and they had filed a missing police report. The patient was subsequently found wandering up and down the road by Police officers. Police officers contacted EMS to transport patient. Patient asked to be taken to the nearest hospital. Upon arrival patient refuses to give any history. hospitalist was called to admit the patient as WBC was significantly elevated and there was concern for severe dehydration. The ambulatory care coordinator informed that the patient has 2 grown children and a grandmother but does not have the information readily available with her Head CT is unremarkable Chest x-ray unremarkable Subjective Date of service: 12/19/19 Principal diagnosis: CLL chronic lymphocytic leukemia Interval history: Patient seen and examined. Medical records and medication list reviewed. No acute event overnight noted by the RN. Patient nonverbal and does not answer any question. Patient is tolerating diet. Discussed plan of care at bedside with patient"s RN. She has been refusing labs and refusing medications Objective - Exam Narrative Exam: VITAL SIGNS: Reviewed. GENERAL: The patient appears normally developed, sitting up in bed and refusing to answer any question. vital signs as documented. HEAD: No signs of head trauma. EYES: Pupils are equal. Extraocular motions intact. EARS: Hearing grossly intact. MOUTH: Oropharynx is normal. NECK: No adenopathy, no JVD. CHEST: Chest with diminished breath sounds bilaterally. No wheezes, rales, or rhonchi. CARDIAC: Regular rate and rhythm. S1 and S2, without murmurs, gallops, or rubs. VASCULAR: No Edema. Peripheral pulses normal and equal in all extremities. ABDOMEN: Soft, non tender and non distended. No rebound or guarding, and no masses palpated. Bowel Sounds normal. MUSCULOSKELETAL: Good range of motion of all major joints. Extremities without clubbing, cyanosis or edema. NEUROLOGIC EXAM: Awake but not following any commands. No focal sensory or strength deficits. PSYCHIATRIC: Mood catheter SKIN: Well-healed laceration over the left eyelid - Constitutional Vitals: Vital Signs - 12hr 12/20/19 12/20/19 05:31 11:33 Temperature 98.1 F 98.3 F Pulse Rate 91 H 104 H Respiratory 18 20 Rate Blood Pressure 111/80 132/80 O2 Sat by Pulse 100 98 Oximetry - Labs CBC & Chem 7: 12/14/19 01:15 12/14/19 01:15
[2019-12-20] MEDS: MIRTAZAPINE 15 MG TAB PO SCH (23:02)
--- NOTE | 2019-12-21 09:41 | Progress Note ---
Subjective - Reason for Consult Consult date: 12/21/19 Reason for consult: MHE Requesting physician: MIAH ATWOOD - Chief Complaint Chief complaint: Psych Progress HPI Patient seen this AM, withdrawn to self, responds to greetings, but otherwise stays muted. Nurse notes reviewed, pt has had no behavioral disturbances besides being withdrawn and less engaged. Review of Symptoms: Constitutional: Negative for weight loss ENT: Negative for stridor Respiratory: Negative for cough or hemoptysis All other systems reviewed and are negative MENTAL STATUS EXAMINATION General Appearance and Behavior: Age appropriate, good hygiene, wearing appropriate clothes poor eye contact, uncooperative polite with questioning. Cooperation: Hostile and Guarded Psychomotor Behavior: psychomotor retardation Mood: im good Affect and affective range: flat Thought Process: preservative, Illogic Thought Content: Obessions Speech: slow, low toned Intellectual Functioning: Average Suicidal Ideation: Denies SI Homicidal Ideation: Denies HI Impulse Control: Impaired Insight and Judgment: Impaired Memory: memory impaired Attention: Normal Orientation: Alert, oriented, anxious Assessment and Plan - Patient Problems (1) Schizophrenia, paranoid Current Visit: Yes Status: Acute (2) Schizophrenia with prominent negative symptoms Current Visit: Yes Status: Acute RECOMMENDATIONS Haldol Decanoate 50mg IM started. MEDICATIONS: Risks, benefits and alternatives of medications discussed with the patient, questions answered and consent obtained from patient. PSYCHOTHERAPY: Supportive psychotherapy provided MEDICAL: Per primary team DELIRIUM PRECAUTIONS: Please re-orient patient frequently, keep lights on during the day, and minimize benzodiazepines and opiates as these medications could worsen patient's confusion. 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 Case management LEGAL STATUS: 1013 rescinded FOLLOW-UP: Will sign off. Thank you for the consult. Please contact with any questions and/or concerns. Mental Status Exam - Vital signs Last Vital Signs Temp 98.0 F 12/20/19 23:18 Pulse 100 H 12/20/19 23:18 Resp 18 12/20/19 23:18 BP 114/73 12/20/19 23:18 Pulse Ox 99 12/20/19 23:18 Assessment and Plan - Patient Problems (1) Schizophrenia, paranoid Current Visit: Yes Status: Acute (2) Schizophrenia with prominent negative symptoms Current Visit: Yes Status: Acute
[2019-12-21] MEDS: clonazePAM 0.5 MG TAB PO SCH (09:49)
[2019-12-21] MEDS: risperiDONE 1 MG TAB PO SCH (09:49)
[2019-12-21] MEDS: VENLAFAXINE XR 75 MG CAP PO SCH (09:49)
[2019-12-21] MEDS: DIVALPROEX DR 250 MG TAB PO SCH (09:49)
[2019-12-21] MEDS ORDERED: BENZTROPINE 2 MG/2 ML INJ IM ONE (10:00)
[2019-12-21] MEDS ORDERED: HALOPERIDOL DECANOATE 100 MG/1 ML INJ IM ONE (10:00)
[2019-12-21 10:36] VITALS: BP 120/72
--- NOTE | 2019-12-21 10:56 | Progress Note ---
Assessment and Plan Acute psychosis, CLL/SLL CD34 negative (based on flow cytometry) Acute kidney injury likely secondary to vasomotor nephropathy Severe dehydration Schizophrenia, Dementia Hyperkalemia Hypercalcemia Elevated free T4 with normal TSH Plan cont supportive care Mental health consult consult tele sterilization tech Restraints if needed DVT and GI prophylaxis Awaiting records from outpatient facilities to be able to restart appropriate medications. For now patient received antibiotics in the ED will not give any further antibiotics. 12/14: Remains aphasic refusing to answer questions. Flow cytometry sent out, Outpatient sterilization tech on discharge as arranged by previous hospital. WBC at the other facility a month ago was 44K. No other medical issues, patient is cleared for discharge to Inpatient psych or based on psych recommendation. 12/15: Patient's mental health needs to improve before she could be managed for possible underlying leukemia. Patient need to follow-up at sterilization tech and oncologist outpatient. medically stable for d/c. Will follow daily hematology recommendation 12/16: refusing labs. noncooperative during encounter. medically clear for inpt psych admission 12/17 d/c pending on inpt psych placement 12/18: d/c pending on inpt psych placement 12/19: d/c pending on psych clearance Brief history: Patient is a 64 year old female with past medical hx of schizophrenia, Bipolar, paranoid, catatonic type, dementia. She has had multiple bouts of admissions to multiple hospitals including [facility], with [facility], there was also concern in her few years that she may have leukemia although unfortunately has not been followed by any sterilization tech as the recommendation from Dr. FE Ro could not be carried out as patient does not have an ID card. Per caregiver the patient left the house and they had filed a missing police report. The patient was subsequently found wandering up and down the road by Police officers. Police officers contacted EMS to transport patient. Patient asked to be taken to the nearest hospital. Upon arrival patient refuses to give any history. hospitalist was called to admit the patient as WBC was significantly elevated and there was concern for severe dehydration. The manager care management informed that the patient has 2 grown children and a grandmother but does not have the information readily available with her Head CT is unremarkable Chest x-ray unremarkable Subjective Date of service: 12/20/19 Principal diagnosis: CLL chronic lymphocytic leukemia Interval history: Patient seen and examined. Medical records and medication list reviewed. No acute event overnight noted by the RN. Patient nonverbal and does not answer any question. Patient is tolerating diet. Discussed plan of care at bedside with patient"s RN. She has been refusing labs and refusing medications Objective - Exam Narrative Exam: VITAL SIGNS: Reviewed. GENERAL: The patient appears normally developed, sitting up in bed and refusing to answer any question. vital signs as documented. HEAD: No signs of head trauma. EYES: Pupils are equal. Extraocular motions intact. EARS: Hearing grossly intact. MOUTH: Oropharynx is normal. NECK: No adenopathy, no JVD. CHEST: Chest with diminished breath sounds bilaterally. No wheezes, rales, or rhonchi. CARDIAC: Regular rate and rhythm. S1 and S2, without murmurs, gallops, or rubs. VASCULAR: No Edema. Peripheral pulses normal and equal in all extremities. ABDOMEN: Soft, non tender and non distended. No rebound or guarding, and no masses palpated. Bowel Sounds normal. MUSCULOSKELETAL: Good range of motion of all major joints. Extremities without clubbing, cyanosis or edema. NEUROLOGIC EXAM: Awake but not following any commands. No focal sensory or strength deficits. PSYCHIATRIC: Mood catheter SKIN: Well-healed laceration over the left eyelid - Constitutional Vitals: Vital Signs - 12hr 12/20/19 12/21/19 23:18 10:32 Temperature 98.0 F 97.8 F Pulse Rate 100 H 92 H Respiratory 18 16 Rate Blood Pressure 114/73 120/72 O2 Sat by Pulse 99 95 Oximetry - Labs CBC & Chem 7: 12/14/19 01:15 12/14/19 01:15
== END 2019-12-21 13:25 | disposition home health service (06) ==
LOC: ED 00:23 → EDBD 00:23 → 3A 04:17
PROVIDERS: ADMIT Internal Medicine; ATTEND Internal Medicine
DX: F23 Brief psychotic disorder (principal); Z20.828 Contact with and (suspected) exposure to other viral communicable diseases; N17.9 Acute kidney failure, unspecified; F03.90 Unspecified dementia, unspecified severity, without behavioral disturbance, psychotic disturbance, mood disturbance, and anxiety; R94.6 Abnormal results of thyroid function studies; D72.823 Leukemoid reaction; R41.82 Altered mental status, unspecified; F31.9 Bipolar disorder, unspecified; E86.0 Dehydration; E87.5 Hyperkalemia; E83.52 Hypercalcemia; Z79.899 Other long term (current) drug therapy
CPT/HCPCS: 36415; 70450; 71045; 80048; 80076; 82140; 82550; 84439; 84443; 85007; 85025; 85610; 85730; 87040; 88184; 88185; 96360; 96361; 96372; 99284; G0378; J0290; J0515; J1200; J1630; J1631; J2060; J3370; J3486; J7030; U0003; 80320; G0480

== ENCOUNTER 2020-02-10 13:15 | Emergency (ER) | payer MEDICARE ==
[2020-02-10] MEDS ORDERED: ZIPRASIDONE MESYLATE 20 MG VIAL IM ONE (15:16)
--- NOTE | 2020-02-10 16:06 | Emergency Department Report ---
<CHUY QUIROZ - Last Filed: 02/12/20 15:15> ED Psych HPI - General Chief Complaint: Medical Clearance Stated Complaint: PSYCH DISORDER Time Seen by Provider: 02/10/20 13:39 - Related Data Previous Rx's Medication Instructions Recorded Last Taken Type Haldol Decanoate 50 mg IM QWEEK #3 vial 12/21/19 Unknown Rx Allergies Allergy/AdvReac Type Severity Reaction Status Date / Time No Known Allergies Allergy Verified 12/14/19 06:13 ED Past Medical Hx - Medications Home Medications: Home Medications Medication Instructions Recorded Confirmed Last Taken Type Haldol Decanoate 50 mg IM QWEEK #3 vial 12/21/19 02/13/20 Unknown Rx ED Course - Reevaluation(s) Reevaluation #1: 02/12/20 15:15 Reviewed the patient's labs. Patient does have chronic elevation of her white count as she has CLL. This does not appear to be a factor today for not being able to clear the patient medically. Patient does have a slight elevation of potassium. We will recheck the potassium level to ensure that it is not hemolyzed. 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 ED Medical Decision Making - Lab Data Result diagrams: 02/11/20 13:08 02/11/20 13:08 ED Disposition Clinical Impression: Schizophrenia, paranoid, Schizophrenia with prominent negative symptoms, Acute psychosis, Dementia Disposition: [id number]/[id number] PSY HOSP/PSY UNIT Condition: Stable Instructions: Dementia (ED) Additional Instructions: Patient to be discharged from the ER and go directly to the geriatric psych floor. Referrals: PRIMARY CARE, [Primary Care Provider] - 3-5 Days <EMELYN QUIROZ - Last Filed: 02/14/20 16:13> ED Psych HPI - General Source: EMS Mode of arrival: Stretcher - History of Present Illness Initial Comments: This is a 64-year-old female with a history of dementia, paranoid catatonic schizophrenia CLL presents with agitation. Patient was evaluated by PCP today. She refused to take her medications. Caregiver called EMS to transport patient to the ED for psychiatric stabilization. Patient is nonverbal. She resists physical exam. However when attempting to obtain labs, she said "no blood" According to EMR, patient receives Haldol injections on a weekly basis. MD Complaint: other (Agitation not taking medications) -: days(s) (Several days) History of same: Yes Quality: constant Improves With: none Worsens With: none Context: not taking psychiatric Treatments Prior to Arrival: other (Evaluated by PCP) ED Review of Systems ROS: Stated complaint: PSYCH DISORDER Other details as noted in HPI Comment: Unobtainable due to pts medical conditions ED Past Medical Hx - Past Medical History Previous Medical History?: Yes Hx Psychiatric Treatment: Yes (schizophrenia) Additional medical history: uanble to obtain - Surgical History Additional Surgical History: unable to obtain - Social History Smoking Status: Unknown if ever smoked ED Physical Exam - General Limitations: No Limitations General appearance: alert, in no apparent distress, other (Calm makes eye contact purposeful movement resist physical exam pushes my hand and stethoscope away) - Head Head exam: Present: atraumatic, normocephalic - Eye Eye exam: Present: normal appearance - ENT ENT exam: Present: mucous membranes moist - Neck Neck exam: Present: normal inspection, full ROM - Respiratory Respiratory exam: Present: normal lung sounds bilaterally. Absent: respiratory distress, wheezes, rales, rhonchi - Cardiovascular Cardiovascular Exam: Present: regular rate, normal rhythm, normal heart sounds. Absent: systolic murmur, diastolic murmur, rubs, gallop - GI/Abdominal GI/Abdominal exam: Present: soft, normal bowel sounds. Absent: distended, tenderness, guarding, rebound - Extremities Exam Extremities exam: Present: normal inspection - Neurological Exam Neurological exam: Present: alert - Psychiatric Psychiatric exam: Present: agitated, flat affect - Skin Skin exam: Present: warm, dry, intact, normal color. Absent: rash ED Course Vital Signs 02/10/20 02/11/20 02/12/20 13:47 20:15 02:35 Temperature 97.3 F L 98.6 F Pulse Rate 87 85 90 Respiratory 16 20 18 Rate Blood Pressure 141/93 Blood Pressure 103/66 190/111 [Left] O2 Sat by Pulse 100 98 99 Oximetry 02/12/20 02/12/20 02/13/20 09:25 20:16 02:02 Temperature 97.8 F 98.6 F 98.0 F Pulse Rate 91 H 94 H 92 H Respiratory 19 18 18 Rate Blood Pressure Blood Pressure 120/72 107/78 120/77 [Left] O2 Sat by Pulse 100 99 99 Oximetry 02/13/20 02/13/20 08:30 19:32 Temperature 98.6 F 97.3 F L Pulse Rate 98 H 100 H Respiratory 20 14 Rate Blood Pressure Blood Pressure 153/85 132/90 [Left] O2 Sat by Pulse 100 100 Oximetry ED Medical Decision Making - Lab Data Result diagrams: 02/11/20 13:08 02/12/20 17:59 - Medical Decision Making Ms. Morrow is a 64-year-old female with history of chronic chronic paranoid schizophrenia, CLL who presents with her agitation and refusal to take medications. She received IM Geodon for chemical restraint. At this time awaiting mental health consultation as well as work-up to be completed including labs and urine. Patient continues to state staring off in the room. She has refused blood draw multiple times. In spite Geodon and IM lorazepam patient is awake and continues to decline compliant with blood draw. Awaiting mental healt h evaluation for assistance with medication. I evaluated this patient for similar presentation 2 months ago in November with similar presentation. Patient received telemedicine consultation by hematol ogist while admitted to the hospitalist service. Diagnosed with CLL. Sheet Finisher anticipated that the patient would not receive treatment considering patient's concomitant diagnoses. According to discharge summary patient has been admitted to several hospitals including emergency site, [facility] and [facility]. It was well-documented that she refused laboratory previous hospitalization. Patient has received multiple sedative agents including Geodon, lorazepam and Benadryl. She continues to refuse lab draw. She is sitting upright on the stretcher staring off with occasional deliberate movements. According to EMR review patient has been admitted to Geriatric Mental Health Unit Critical care attestation.: If time is entered above; I have spent that time in minutes in the direct care of this critically ill patient, excluding procedure time. ED Disposition Is pt being admited?: No Does the pt Need Aspirin: No
[2020-02-10] MEDS ORDERED: LORazepam 2 MG/ML VIAL IM ONE (17:23)
[2020-02-10 23:01] LABS: Hematocrit 39.8 % (30.3-42.9); Hemoglobin 12.5 gm/dl (10.1-14.3); Mean Corpuscular HGB Conc 31 % (30-34); Mean Corpuscular Volume 99 fl (79-97); Platelet Count 144 K/mm3 (140-440); Red Blood Count 4.02 M/mm3 (3.65-5.03); Red Cell Distribution Width 15.2 % (13.2-15.2)
[2020-02-10 23:18] LABS: BUN/Creatinine Ratio 31; Blood Urea Nitrogen 34 mg/dL (7-17); Calcium 9.9 mg/dL (8.4-10.2); Hemolysis Index 24
[2020-02-11 01:50] LABS: Anisocytosis RARE; Basophils % (Manual) 0 % (0.0-1.8); Eosinophils % (Manual) 0 % (0.0-4.3); Ovalocytes Rare; Platelet Estimate Consistent w Auto; Total Cells Counted 100
[2020-02-11 11:30] LABS: Bilirubin,Urine NEG (Negative); Blood,Urine NEG (Negative); Color,Urine Yellow (Yellow); Mucus,Urine FEW /HPF; Protein,Urine <15 mg/dL mg/dL (Negative)
[2020-02-11 11:37] LABS: Amphetamine Screen,Urine Negative; Benzodiazepines Screen,Urine Negative; Cannabinoid Screen,Urine Negative; Cocaine Screen,Urine Negative; Methadone Screen,Urine Negative; Opiate Screen,Urine Negative
--- NOTE | 2020-02-11 13:32 | Consultation ---
History of Present Illness - Reason for Consult Consult date: 02/11/20 Reason for consult: uncooperative - History of Present Psychiatric Illness Keara Morrow is a 64y/o female patient who was brought to the ER from primary office by ER. During my interview with the patient she is reluctant to cooperative. She makes poor eye contact. She is paranoid and delusional. She states "I just don't know who to trust." When asking the patient why was she refusing her meds, she states "I'm mentally competent and need no medication." The patient says "my schizophrenia was dismissed by her doctor." The patient refused to answer any other questions. PAST PSYCHIATRIC HISTORY Unable to properly assess PAST MEDICAL HISTORY: None reported Family Psychiatric History: None reported or documented SOCIAL HISTORY the patient is uncooperative REVIEW OF SYSTEMS The patient is uncooperative MENTAL STATUS EXAMINATION Unable to properly assess Assessment Schizophrenia Plan Risperidone 0.25mg po BID Trazodone 50mg po qhs Geodon 10mg IM q4hr prn agitation Sitter: Defer to primary Medical: Per primary Disposition: Recommend acute inpatient treatment. Will follow. Thank you for this consult. Medications and Allergies Allergies Allergy/AdvReac Type Severity Reaction Status Date / Time No Known Allergies Allergy Verified 12/14/19 06:13 Home Medications Medication Instructions Recorded Confirmed Last Taken Type No Known Home Medications [No 12/18/19 12/18/19 Unknown History Reported Home Medications] Haldol Decanoate 50 mg IM QWEEK #3 vial 12/21/19 Unknown Rx Mental Status Exam - Vital signs Last Vital Signs Temp Pulse 87 02/10/20 13:47 Resp 16 02/10/20 13:47 BP 103/66 02/10/20 13:47 Pulse Ox 100 02/10/20 13:47 Results Result Diagrams: 02/10/20 22:26 02/10/20 22:26 Abnormal lab results 02/10/20 02/10/20 02/10/20 Range/Units 22:26 22:26 22:26 WBC 24.6 H (4.5-11.0) K/mm3 MCV 99 H (79-97) fl Seg Neuts % (Manual) 20.0 L (40.0-70.0) % Lymphocytes % (Manual) 78.0 H (13.4-35.0) % Lymphocytes # (Manual) 19.2 H (1.2-5.4) K/mm3 Potassium 5.2 H (3.6-5.0) mmol/L BUN 34 H (7-17) mg/dL Salicylates < 0.3 L (2.8-20.0) mg/dL Acetaminophen (10.0-30.0) ug/mL 02/10/20 Range/Units 22:26 WBC (4.5-11.0) K/mm3 MCV (79-97) fl Seg Neuts % (Manual) (40.0-70.0) % Lymphocytes % (Manual) (13.4-35.0) % Lymphocytes # (Manual) (1.2-5.4) K/mm3 Potassium (3.6-5.0) mmol/L BUN (7-17) mg/dL Salicylates (2.8-20.0) mg/dL Acetaminophen 5.0 L (10.0-30.0) ug/mL All other labs normal.
[2020-02-11] MEDS ORDERED: ZIPRASIDONE MESYLATE 20 MG VIAL IM PRN (13:39)
[2020-02-11 13:45] LABS: Hematocrit 43.8 % (30.3-42.9); Hemoglobin 14.2 gm/dl (10.1-14.3); Mean Corpuscular HGB Conc 33 % (30-34); Mean Corpuscular Volume 96 fl (79-97); Platelet Count 161 K/mm3 (140-440); Red Blood Count 4.54 M/mm3 (3.65-5.03)
[2020-02-11 14:03] LABS: BUN/Creatinine Ratio 27; Blood Urea Nitrogen 30 mg/dL (7-17); Calcium 10.3 mg/dL (8.4-10.2); Hemolysis Index 1
[2020-02-11] MEDS: traZODone 50 MG TAB PO SCH ×2 (23:00→23:09)
[2020-02-11] MEDS: risperiDONE 0.25 MG TAB PO SCH ×3 (23:00→23:10)
--- NOTE | 2020-02-12 10:35 | Progress Note ---
Subjective - Reason for Consult Consult date: 02/12/20 Reason for consult: nonverbal, uncooperative - Chief Complaint Chief complaint: The patient's medical record was reviewed and the patient's progress was discussed with the nursing staff. The nurse note states the patient has flat affect, poor eye contact, During my interview with the patient this morning, she is sitting up in bed. She makes no eye contact at all. Her affect is flat. She is paranoid. She says "I know what you're trying to do." She then stops speaking and refuses to answer any more questions. REVIEW OF SYSTEMS The patient is uncooperative MENTAL STATUS EXAMINATION Unable to properly assess Assessment Paranoid Schizophrenia Plan Risperidone 0.5mg po BID Sitter: Defer to primary Medical: Per primary Disposition: Recommend acute inpatient treatment. Will follow. Thank you for this consult. Mental Status Exam - Vital signs Last Vital Signs Temp 97.8 F 02/12/20 09:25 Pulse 91 H 02/12/20 09:25 Resp 19 02/12/20 09:25 BP 120/72 02/12/20 09:25 Pulse Ox 100 02/12/20 09:25
[2020-02-12] MEDS: risperiDONE 0.25 MG TAB PO SCH ×3 (17:48→23:03)
[2020-02-12 18:57] LABS: BUN/Creatinine Ratio 33; Blood Urea Nitrogen 36 mg/dL (7-17); Calcium 9.7 mg/dL (8.4-10.2); Hemolysis Index 25
[2020-02-12] MEDS ORDERED: traZODone 100 MG TAB PO SCH (23:00)
[2020-02-12] MEDS: traZODone 50 MG TAB PO SCH (23:11)
--- NOTE | 2020-02-13 07:46 | Progress Note ---
Subjective - Reason for Consult Consult date: 02/13/20 Reason for consult: MHE Requesting physician: EMELYN QUIROZ - Chief Complaint Chief complaint: Psych Progress HPI Patient seen in room remained quiet unable to maintain eye contact looking in the corner and selectively mute without any verbal communication or response to question prompt Review of Symptoms: Constitutional: Negative for weight loss ENT: Negative for stridor Respiratory: Negative for cough or hemoptysis All other systems reviewed and are negative MENTAL STATUS EXAMINATION General Appearance and Behavior: Age appropriate, good hygiene, wearing appropriate clothes poor eye contact, uncooperative polite with questioning. Cooperation: Hostile and Guarded Psychomotor Behavior: psychomotor retardation Mood: Mute Affect and affective range: flat Thought Process: Perseverative, Illogic Thought Content: Obessions, paranoia Speech: slow, low toned Intellectual Functioning: Average Suicidal Ideation: Denies SI Homicidal Ideation: Denies HI Impulse Control: Impaired Insight and Judgment: Impaired Memory: memory impaired Attention: Normal Orientation: Alert, oriented, anxious Assessment and Plan - Patient Problems (1) Schizophrenia, paranoid Current Visit: Yes Status: Acute (2) Schizophrenia with prominent negative symptoms Current Visit: Yes Status: Acute RECOMMENDATIONS IM medications today, pt non compliant with oral meds and refused to not take them. Ativan challenge MEDICATIONS: Risks, benefits and alternatives of medications discussed with the patient, questions answered and consent obtained from patient. PSYCHOTHERAPY: Supportive psychotherapy provided MEDICAL: Per primary team DELIRIUM PRECAUTIONS: Please re-orient patient frequently, keep lights on during the day, and minimize benzodiazepines and opiates as these medications could worsen patient's confusion. CABLE TECHNICIAN: per medical team DISPOSITION: Recommends acute inpatient psychiatric hospitalization at this time LEGAL STATUS: 1013 FOLLOW-UP: Will follow Thank you for the consult. Please contact with any questions and/or concerns. Mental Status Exam - Vital signs Last Vital Signs Temp 98.0 F 02/13/20 02:02 Pulse 92 H 02/13/20 02:02 Resp 18 02/13/20 02:02 BP 120/77 02/13/20 02:02 Pulse Ox 99 02/13/20 02:02
[2020-02-13] MEDS: LORazepam 2 MG/ML VIAL IM SCH ×2 (11:59→18:12)
[2020-02-13] MEDS: risperiDONE 0.25 MG TAB PO SCH (12:03)
[2020-02-13 20:13] VITALS: BP 132/90
== END 2020-02-13 20:59 ==
LOC: ED 13:15
DX: F20.0 Paranoid schizophrenia (principal); F03.90 Unspecified dementia, unspecified severity, without behavioral disturbance, psychotic disturbance, mood disturbance, and anxiety; Z79.899 Other long term (current) drug therapy; Z20.828 Contact with and (suspected) exposure to other viral communicable diseases
CPT/HCPCS: 36415; 80048; 80307; 81001; 84132; 85007; 85025; 85027; 96372; 99284; J2060; J3486; U0003; 80320; G0480

== ENCOUNTER 2020-02-13 15:06 | Inpatient (IN) | payer MEDICARE ==
[2020-02-13] MEDS ORDERED: traZODone 100 MG TAB PO ONE (21:18)
[2020-02-13] MEDS ORDERED: risperiDONE 0.25 MG TAB ONE (21:18)
--- NOTE | 2020-02-14 09:36 | History and Physical Report ---
GP History & Physical - History of Present Illness Date of admission: 02/13/20 Date of Examination: 02/14/20 Reason for Admission: Failure of Outpatient Treatment, Psychopathology interference History of Present Illness: Per ED Provider: This is a 64-year-old female with a history of dementia, paranoid catatonic schizophrenia CLL presents with agitation. Patient was evaluated by PCP today. She refused to take her medications. Caregiver called EMS to transport patient to the ED for psychiatric stabilization. Patient is nonverbal. She resists physical exam. However when attempting to obtain labs, she said "no blood" History of Present Illness: The patient is a 63 y/o single, currently unemployed on social disability income resides in a [facility] [place] female with history of Schizophrenia and Dementia who presented from her primary care provider's office due to refusal to take medications. This patient is well-known to me for prior encounter, today patient is mute selectively, says the reason why she does not take her medication is because she does not have any psych problem. Miss Morrow says she didnt want to eat this AM, says she is mentally competent, I redirected her thought process that if she was mentally competent then she should know that wellness is part of health and if is she is not eating, drinking or self grooming, I cant believe her, patient then acknowledges that she will eat and drink, she drank water next to her and asked to go to room to brush her teeth. Patient seen in the dayroom this morning. She is alert, she is a poor historian, states that she is ok and denies SI/HI. She is not able to engage in further conversation. PAST PSYCHIATRIC HISTORY: Diagnoses: Schizophrenia, Dementia Suicide attempts or Self-harm behavior: Unknown Prior psychiatric hospitalizations: Unknown Substance Abuse history: Unknown Previous psychiatric medications tried: Unknown Outpatient treatment: Unknown PAST MEDICAL HISTORY: Leukemia Family Psychiatric History None reported or documented SOCIAL HISTORY Unable to obtain REVIEW OF SYSTEMS ROS cannot be reliably obtained from the patient due to her confusion MENTAL STATUS EXAMINATION General Appearance and Behavior: age appropriate, poor eye contact, uncooperative with questioning Cooperation: uncooperative Psychomotor Behavior: agitated Mood: OK Affect and affective range: Congruent with stated mood Thought Process: Disorganized Thought Content: Confused Speech: Paucity of speech Intellectual Functioning Impaired Suicidal Ideation: Denies SI Homicidal Ideation: Denies HI Impulse Control: impaired Insight and Judgment: impairedl insight and judgment Memory: impaired Attention: Normal Orientation: alert and oriented x 1 - Psychiatric problem (1) Schizophrenia Current Visit: Yes Status: Acute Qualifiers: Schizophrenia type: unspecified Qualified Code(s): F20.9 - Schizophrenia, unspecified (2) Dementia with behavioral disturbance Current Visit: Yes Status: Acute Treatment Plan Start on Haldol decanoate 100mg Patient admitted for inpatient psychiatric evaluation, medication adjustment and close monitoring The patient's behavior, mood, sleep and appetite will be closely monitored. Patient enrolled in individual and group therapeutic sessions and encouraged to attend. Patient provided with a safe and structured environment. Patient's physical health needs will be addressed by the Hospitalist. Hospitalist Consulted Labs including CBC, CMP, Lipid profile and Hemoglobin A1C levels ordered for baseline reference Social Assessment will be completed and the Hat Block Maker will work with patient and family to ensure a suitable and safe disposition Medication adjustment will be made as clinically indicated Usual Wellness Episcopalian/Preservation: - Start Trazodone 50 mg po QHS & 50 mg po QHS PRN between 10 PM & 2 AM for insomnia - Start Melatonin 5 mg po QHS to promote circadian rhythm - Start [place]-3 for brain health, reduce impulsivity, and as adjunctive treatment for mood disorder, continue upon discharge given overall benefits. - Start B1 prophylaxis with 200 mg po for 5 days The patient agreed on the treatment plan, understood the risk, benefit, alternative treatment, potential consequence of no treatment, and gave informed consent. Initial Certification Inpatient psych services: I certify that the inpatient psychiatric services are required for treatment that could reasonably be expected to improve the patient's condition. Estimated days: 7 Legal Status: Voluntary Reaction to Hospitalization: Accepting Medications and Allergies Allergies Allergy/AdvReac Type Severity Reaction Status Date / Time No Known Allergies Allergy Verified 12/14/19 06:13 Home Medications Medication Instructions Recorded Confirmed Last Taken Type Haldol Decanoate 50 mg IM QWEEK #3 vial 12/21/19 02/13/20 Unknown Rx Results - Results Labs/Vitals: Laboratory Last Values POC Glucose 78 (70-105) 02/13/20 23:56 Last Vital Signs Temp Pulse 83 02/13/20 22:53 Resp 18 02/13/20 22:53 BP 135/91 02/13/20 22:53 Pulse Ox 97 02/13/20 22:53 Physical Examination - Constitutional Vitals: Vital Signs Temp Pulse Resp BP Pulse Ox 83 18 135/91 97 10/16/20 22:53 02/13/20 22:53 02/13/20 22:53 02/13/20 22:53 Mental Status Exam - Vital signs Last Vital Signs Temp Pulse 83 02/13/20 22:53 Resp 18 02/13/20 22:53 BP 135/91 02/13/20 22:53 Pulse Ox 97 02/13/20 22:53 Physician Certification - Certification Statement Physician Certification Statement: This is an acknowledgement statement that DELFINA MORROW is a 64 year old F who requires inpatient psychiatric admission for treatment which could reasonably be expected to improve the patient's condition for Estimated period of time patient will need to remain in the hospital: [ ] Plan for post-hospital care: [ ]
[2020-02-14] MEDS ORDERED: HALOPERIDOL DECANOATE 100 MG/1 ML INJ IM SCH (10:00)
[2020-02-14] MEDS: ZOLPIDEM 5 MG TAB PO SCH (21:55)
[2020-02-14] MEDS: OMEGA-3 FATTY ACIDS/FISH OIL 1 GRAM CAP PO SCH (21:55)
--- NOTE | 2020-02-15 09:29 | Progress Note ---
Subjective Date of service: 02/15/20 Principal diagnosis: Schizophrenia with prominent negative symptoms Subjective Comment: Psych Progress HPI Patient seen this AM, withdrawn to self, responds to greetings, but otherwise stays muted. Patient voices sleeping well, says she does not need any help with sleep, she reports feeling alright and remained muted to further question prompts. Reason for inpatient hospitalization: IM Haldol decanote administered yesterday at higher dose from pts previous dose, will continue to observe for stability and improve orientation and redirection to ADLs which includes self care, grooming, eating and cooperation. Review of Symptoms: Constitutional: Negative for weight loss ENT: Negative for stridor Respiratory: Negative for cough or hemoptysis All other systems reviewed and are negative MENTAL STATUS EXAMINATION General Appearance and Behavior: Age appropriate, good hygiene, wearing appropriate clothes poor eye contact, uncooperative polite with questioning. Cooperation: Hostile and Guarded Psychomotor Behavior: psychomotor retardation Mood: im good Affect and affective range: flat Thought Process: preservative, Illogic Thought Content: Obessions Speech: slow, low toned Intellectual Functioning: Average Suicidal Ideation: Denies SI Homicidal Ideation: Denies HI Impulse Control: Impaired Insight and Judgment: Impaired Memory: memory impaired Attention: Normal Orientation: Alert, oriented, anxious Assessment and Plan - Patient Problems (1) Schizophrenia, paranoid Current Visit: Yes Status: Acute (2) Schizophrenia with prominent negative symptoms Current Visit: Yes Status: Acute RECOMMENDATIONS Haldol Decanoate 100mg IM started, continue to observe Patient admitted for inpatient psychiatric evaluation, medication adjustment and close monitoring The patient's behavior, mood, sleep and appetite will be closely monitored. Patient enrolled in individual and group therapeutic sessions and encouraged to attend. Patient provided with a safe and structured environment. Patient's physical health needs will be addressed by the Hospitalist. Hospitalist Consulted Labs including CBC, CMP, Lipid profile and Hemoglobin A1C levels ordered for baseline reference Social Assessment will be completed and the Professor Of Poultry Science will work with patient and family to ensure a suitable and safe disposition Medication adjustment will be made as clinically indicated Usual Wellness Amish/Preservation: - Start Trazodone 50 mg po QHS & 50 mg po QHS PRN between 10 PM & 2 AM for insomnia - Start Melatonin 5 mg po QHS to promote circadian rhythm - Start [place]-3 for brain health, reduce impulsivity, and as adjunctive treatment for mood disorder, continue upon discharge given overall benefits. - Start B1 prophylaxis with 200 mg po for 5 days The patient agreed on the treatment plan, understood the risk, benefit, alternative treatment, potential consequence of no treatment, and gave informed consent. Initial Certification Inpatient psych services: I certify that the inpatient psychiatric services are required for treatment that could reasonably be expected to improve the patient's condition. Estimated days:6 Legal Status: Voluntary Reaction to Hospitalization: Accepting Medications and Allergies Allergies Allergy/AdvReac Type Severity Reaction Status Date / Time No Known Allergies Allergy Verified 12/14/19 06:13 Home Medications Medication Instructions Recorded Confirmed Last Taken Type Haldol Decanoate 50 mg IM QWEEK #3 vial 12/21/19 02/13/20 Unknown Rx Active Meds: Active Medications Fish Oil (Fish Oil) 2,000 mg PO BID [facility] Last Admin: 02/14/20 21:55 Dose: Not Given Documented by: Zolpidem Tartrate (Ambien) 2.5 mg PO QHS [facility] Last Admin: 02/14/20 21:55 Dose: Not Given Documented by: Results - Results Labs/Vitals: Laboratory Last Values POC Glucose 76 (70-105) 02/15/20 07:40 Last Vital Signs Temp Pulse 83 02/13/20 22:53 Resp 18 02/13/20 22:53 BP 135/91 02/13/20 22:53 Pulse Ox 97 02/13/20 22:53
[2020-02-15] MEDS: OMEGA-3 FATTY ACIDS/FISH OIL 1 GRAM CAP PO SCH ×2 (09:34→21:21)
[2020-02-15] MEDS: VALPROIC ACID 250 MG/5 ML ORAL LIQD PO SCH ×2 (11:55→21:21)
[2020-02-15 16:05] LABS: Hepatitis B Surface Antigen Non-Reactive (Negative); Hepatitis C Virus Antibody Non-Reactive (NonReactive)
[2020-02-15] MEDS: ZOLPIDEM 5 MG TAB PO SCH (21:20)
--- NOTE | 2020-02-16 07:33 | Progress Note ---
Subjective Date of service: 02/16/20 Principal diagnosis: Schizophrenia with prominent negative symptoms Subjective Comment: Psych Nurse: Patient is not compliant with medications, refused meals, she isolated self to her room, occasionally paces about in hallway singing. Patient was offered food and beverage, pt refused food but she drinks two cranberry juices and 2 grahams crackers. Lab was drawn by laborer chemical processing with much encouragement by staff, no distress noted. Will continue to monitor. Psych Progress HPI Miss Morrow seen in room this AM, in same sitting position as yesterday, looking towards the window. She says she didnt want to eat because of concerns someone is putting something in her food and does not want to take medications because she is mentally competent and does not need medicine. Patient encourage to engage in activities Of ADLs Reason for inpatient hospitalization: Will continue to observe for stability and improve orientation and redirection to ADLs which includes self care, grooming, eating and cooperation. Review of Symptoms: Constitutional: Negative for weight loss ENT: Negative for stridor Respiratory: Negative for cough or hemoptysis All other systems reviewed and are negative MENTAL STATUS EXAMINATION General Appearance and Behavior: Age appropriate, good hygiene, wearing appropriate clothes poor eye contact, uncooperative polite with questioning. Cooperation: Hostile and Guarded Psychomotor Behavior: psychomotor retardation Mood: im good Affect and affective range: flat Thought Process: preservative, Illogic Thought Content: Obessions Speech: slow, low toned Intellectual Functioning: Average Suicidal Ideation: Denies SI Homicidal Ideation: Denies HI Impulse Control: Impaired Insight and Judgment: Impaired Memory: memory impaired Attention: Normal Orientation: Alert, oriented, anxious Assessment and Plan - Patient Problems (1) Schizophrenia, paranoid Current Visit: Yes Status: Acute (2) Schizophrenia with prominent negative symptoms Current Visit: Yes Status: Acute RECOMMENDATIONS Haldol Decanoate 100mg IM started, continue to observe Patient admitted for inpatient psychiatric evaluation, medication adjustment and close monitoring The patient's behavior, mood, sleep and appetite will be closely monitored. Patient enrolled in individual and group therapeutic sessions and encouraged to attend. Patient provided with a safe and structured environment. Patient's physical health needs will be addressed by the Hospitalist. Hospitalist Consulted Labs including CBC, CMP, Lipid profile and Hemoglobin A1C levels ordered for baseline reference Social Assessment will be completed and the Senior Backup Administrator will work with patient and family to ensure a suitable and safe disposition Medication adjustment will be made as clinically indicated Usual Wellness Hinduism/Preservation: - Start Trazodone 50 mg po QHS & 50 mg po QHS PRN between 10 PM & 2 AM for insomnia - Start Melatonin 5 mg po QHS to promote circadian rhythm - Start [place]-3 for brain health, reduce impulsivity, and as adjunctive treatment for mood disorder, continue upon discharge given overall benefits. - Start B1 prophylaxis with 200 mg po for 5 days The patient agreed on the treatment plan, understood the risk, benefit, alternative treatment, potential consequence of no treatment, and gave informed consent. Initial Certification Inpatient psych services: I certify that the inpatient psychiatric services are required for treatment that could reasonably be expected to improve the patient's condition. Estimated days:5 Legal Status: Voluntary Reaction to Hospitalization: Accepting Medications and Allergies Allergies Allergy/AdvReac Type Severity Reaction Status Date / Time No Known Allergies Allergy Verified 12/14/19 06:13 Home Medications Medication Instructions Recorded Confirmed Last Taken Type Haldol Decanoate 50 mg IM QWEEK #3 vial 12/21/19 02/13/20 Unknown Rx Active Meds: Active Medications Fish Oil (Fish Oil) 2,000 mg PO BID [facility] Last Admin: 02/15/20 21:21 Dose: Not Given Documented by: Valproic Acid (Depakene Liq) 250 mg PO BID [facility] Last Admin: 02/15/20 21:21 Dose: Not Given Documented by: Zolpidem Tartrate (Ambien) 2.5 mg PO QHS [facility] Last Admin: 02/15/20 21:20 Dose: Not Given Documented by: Results - Results Labs/Vitals: Laboratory Last Values POC Glucose 76 (70-105) 02/15/20 07:40 TSH 1.520 mlU/mL (0.270-4.200) 02/15/20 15: Hepatitis A IgM Ab Non-reactive (NonReactive) 02/15/20: Hep Bs Antigen Non-reactive (Negative) 02/15/20 Hep B Core IgM Ab Non-reactive (NonReactive) 02/15/20: Hepatitis C Antibody Non-reactive (NonReactive) 02/15/20 15: Last Vital Signs Temp 98.1 F 02/15/20 22:00 Pulse 98 H 02/15/20 22:00 Resp 18 02/15/20 22:00 BP 145/93 02/15/20 22:00 Pulse Ox 99 02/15/20 22:00
[2020-02-16] MEDS: VALPROIC ACID 250 MG/5 ML ORAL LIQD PO SCH ×2 (11:00→21:43)
[2020-02-16] MEDS: OMEGA-3 FATTY ACIDS/FISH OIL 1 GRAM CAP PO SCH ×2 (11:00→21:44)
[2020-02-16] MEDS: ZOLPIDEM 5 MG TAB PO SCH (21:43)
--- NOTE | 2020-02-17 07:44 | Progress Note ---
Subjective Date of service: 02/17/20 Principal diagnosis: Schizophrenia with prominent negative symptoms Subjective Comment: Psych Nurse: pt spent the evening self isolated in her room, selectively mute, does not make eye contact, initially refused vital signs and blood sugar check; pt later agreed to has blood pressure and blood sugar check, but refused temp. blood pressure stable at 142/88 with elevated pulse of 116, fluid encouraged, blood sugar was 55; pt agreed to eat 4oz of frozen sherbert ice cream and drank one can of ensure; blood sugar rechecked was 87. pt remains non compliant with medication. Pt states," I am not mentally compromised, so I am not taking any medication". No distress noted, will continue to monitor [id number] for safety. Psych Progress HPI Patient in room, refuses to communicate. Reason for inpatient hospitalization: Will continue to observe for stability and improve orientation and redirection to ADLs which includes self care, grooming, eating and cooperation. Review of Symptoms: Constitutional: Negative for weight loss ENT: Negative for stridor Respiratory: Negative for cough or hemoptysis All other systems reviewed and are negative MENTAL STATUS EXAMINATION General Appearance and Behavior: Age appropriate, good hygiene, wearing appropriate clothes poor eye contact, uncooperative polite with questioning. Cooperation: Hostile and Guarded Psychomotor Behavior: psychomotor retardation Mood: im good Affect and affective range: flat Thought Process: preservative, Illogic Thought Content: Obessions Speech: slow, low toned Intellectual Functioning: Average Suicidal Ideation: Denies SI Homicidal Ideation: Denies HI Impulse Control: Impaired Insight and Judgment: Impaired Memory: memory impaired Attention: Normal Orientation: Alert, oriented, anxious Assessment and Plan - Patient Problems (1) Schizophrenia, paranoid Current Visit: Yes Status: Acute (2) Schizophrenia with prominent negative symptoms Current Visit: Yes Status: Acute RECOMMENDATIONS Haldol Decanoate 100mg IM started, continue to observe Patient admitted for inpatient psychiatric evaluation, medication adjustment and close monitoring The patient's behavior, mood, sleep and appetite will be closely monitored. Patient enrolled in individual and group therapeutic sessions and encouraged to attend. Patient provided with a safe and structured environment. Patient's physical health needs will be addressed by the Hospitalist. Hospitalist Consulted Labs including CBC, CMP, Lipid profile and Hemoglobin A1C levels ordered for baseline reference Social Assessment will be completed and the Varnish Maker Helper will work with patient and family to ensure a suitable and safe disposition Medication adjustment will be made as clinically indicated Usual Wellness Latter Day/Preservation: - Start Trazodone 50 mg po QHS & 50 mg po QHS PRN between 10 PM & 2 AM for insomnia - Start Melatonin 5 mg po QHS to promote circadian rhythm - Start [place]-3 for brain health, reduce impulsivity, and as adjunctive treatment for mood disorder, continue upon discharge given overall benefits. - Start B1 prophylaxis with 200 mg po for 5 days The patient agreed on the treatment plan, understood the risk, benefit, alternative treatment, potential consequence of no treatment, and gave informed consent. Initial Certification Inpatient psych services: I certify that the inpatient psychiatric services are required for treatment that could reasonably be expected to improve the patient's condition. Estimated days:5 Legal Status: Voluntary Reaction to Hospitalization: Accepting Medications and Allergies Allergies Allergy/AdvReac Type Severity Reaction Status Date / Time No Known Allergies Allergy Verified 12/14/19 06:13 Home Medications Medication Instructions Recorded Confirmed Last Taken Type Haldol Decanoate 50 mg IM QWEEK #3 vial 12/21/19 02/13/20 Unknown Rx Active Meds: Active Medications Fish Oil (Fish Oil) 2,000 mg PO BID [facility] Last Admin: 02/16/20 21:44 Dose: Not Given Documented by: Valproic Acid (Depakene Liq) 250 mg PO BID [facility] Last Admin: 02/16/20 21:43 Dose: Not Given Documented by: Zolpidem Tartrate (Ambien) 2.5 mg PO QHS [facility] Last Admin: 02/16/20 21:43 Dose: Not Given Documented by: Results - Results Labs/Vitals: Laboratory Last Values POC Glucose 86 (70-105) 02/17/20 06:39 TSH 1.520 mlU/mL (0.270-4.200) 02/15/20 15: Hepatitis A IgM Ab Non-reactive (NonReactive) 02/15/20: Hep Bs Antigen Non-reactive (Negative) 02/15/20: Hep B Core IgM Ab Non-reactive (NonReactive) 02/15/20 15: Hepatitis C Antibody Non-reactive (NonReactive) 02/15/20 15:26 Last Vital Signs Temp 98.1 F 02/15/20 22:00 Pulse 116 H 02/16/20 22:00 Resp 16 02/16/20 22:00 BP 142/88 10/19/20 22:00 Pulse Ox 100 02/16/20 22:00
[2020-02-17] MEDS: VALPROIC ACID 250 MG/5 ML ORAL LIQD PO SCH ×3 (11:00→23:02)
[2020-02-17] MEDS: OMEGA-3 FATTY ACIDS/FISH OIL 1 GRAM CAP PO SCH ×2 (11:00→21:32)
[2020-02-17] MEDS: LORazepam 2 MG/ML VIAL IM SCH ×3 (12:49→21:31)
--- NOTE | 2020-02-17 16:27 | Consultation ---
History of Present Illness - Reason for Consult Consult date: 02/17/20 Medical management - History of Present Illness HPI as per psych 63 y/o single, currently unemployed on social disability income resides in a [facility] [place] with history of Schizophrenia and Dementia wh o presented from her primary care provider's office due to refusal to take medications. This patient is well-known to me for prior encounter, today patient is mute selectively, says the reason why she does not take her medication is because she does not have any psych problem. Miss Morrow says she didnt want to eat this AM, says she is mentally competent, I redirected her thought process that if she was mentally competent then she should know that wellness is part of health and if is she is not eating, drinking or self grooming, I cant believe her, patient then acknowledges that she will eat and drink, she drank water next to her and asked to go to room to brush her teeth. I saw and examined patient at bedside. She denies any complaints. She states she takes no medications at home. Labs have been reviewed Medical records and medication list reviewed. No acute event overnight noted by the RN. Discussed plan of care with RN Past History Past Medical History: other (Schizophrenia) Medications and Allergies Allergies Allergy/AdvReac Type Severity Reaction Status Date / Time No Known Allergies Allergy Verified 12/14/19 06:13 Home Medications Medication Instructions Recorded Confirmed Last Taken Type Haldol Decanoate 50 mg IM QWEEK #3 vial 12/21/19 02/13/20 Unknown Rx Active Meds: Active Medications Fish Oil (Fish Oil) 2,000 mg PO BID [facility] Last Admin: 02/16/20 21:44 Dose: Not Given Documented by: Lorazepam (Ativan) 2 mg IM Q4HR [facility] Stop: 02/17/20 18:01 Last Admin: 02/17/20 12:49 Dose: 2 mg Documented by: Valproic Acid (Depakene Liq) 250 mg PO BID [facility] Last Admin: 02/16/20 21:43 Dose: Not Given Documented by: Zolpidem Tartrate (Ambien) 2.5 mg PO QHS [facility] Last Admin: 02/16/20 21:43 Dose: Not Given Documented by: Exam - Physical Exam Narrative exam: VITAL SIGNS: Reviewed. GENERAL: Normal appearance but minimal eye contact HEAD: No signs of head trauma. EYES: Pupils are equal. Extraocular motions intact. EARS: Hearing grossly intact. MOUTH: Oropharynx is normal. NECK: No adenopathy, no JVD. CHEST: Chest with diminished breath sounds bilaterally. No wheezes, rales, or rhonchi. CARDIAC: Regular rate and rhythm. S1 and S2, without murmurs, gallops, or rubs. VASCULAR: No Edema. Peripheral pulses normal and equal in all extremities. ABDOMEN: Soft, non tender and non distended. No rebound or guarding, and no masses palpated. Bowel Sounds normal. MUSCULOSKELETAL: Good range of motion of all major joints. Extremities without clubbing, cyanosis or edema. NEUROLOGIC EXAM: Alert and oriented x3 PSYCHIATRIC: At baseline SKIN: No skin lesions - Constitutional Vitals: Temp Pulse Resp BP Pulse Ox 98.1 F 78 16 113/65 81 L 02/15/20 22:00 02/17/20 09:16 02/16/20 22:00 02/17/20 09:16 02/17/20 09:16 Results - Labs Labs: Abnormal lab results 02/16/20 Range/Units 20:14 POC Glucose 55 L (70-105) Assessment and Plan 64-year-old female with a psychiatric history of schizophrenia admitted to the psych unit. Medical team consulted for medical management 1. Psych disorder-management as per psych 2. Obtain baseline labs-TSH, free T4 vitamin B12, folate, vitamin D, hemoglobin A1c 3. [id number] statins. Needs to have repeat lipid panel in 3 months Full code Thank you for the consult!
[2020-02-17] MEDS ORDERED: LORazepam 2 MG/ML VIAL IM SCH (21:00)
[2020-02-17] MEDS: ZOLPIDEM 5 MG TAB PO SCH (21:31)
[2020-02-18] MEDS: ZOLPIDEM 5 MG TAB PO SCH (06:26)
--- NOTE | 2020-02-18 07:52 | Progress Note ---
Subjective Date of service: 02/18/20 Principal diagnosis: Schizophrenia with prominent negative symptoms Subjective Comment: Psych Nurse: 1730 Pt spent the morning in her room, refused to get OOB or come out of her room. She had poor eye contact, won't speak and refused breakfast. She refused po meds. Scheduled IM Ativan given x 2 and as staff continued to encourage pt and speak about God, she began to respond verbally, drank her cup of ice tea and juice, she got up from her bed, danced for about 10mins and finally agreed to accompany staff to the activity room. She ate all of her lunch and dinner and participating in her care. Will continue to monitor and encouraged. Psych Progress HPI Today, Ms Morrow responded to me when I said Good morning, she says she is doing fine, I informed miss Morrow oral medications will be discontinued since I noticed she has been eating, patient says yes she agrees, she does not want any medication, not even a tylenol and would be eating and take care of herself. Reason for inpatient hospitalization: Nurse reports patient ate her meals after much persuasion, all oral meds discontinued, will continue to observe for improvement in her mood Review of Symptoms: Constitutional: Negative for weight loss ENT: Negative for stridor Respiratory: Negative for cough or hemoptysis All other systems reviewed and are negative MENTAL STATUS EXAMINATION General Appearance and Behavior: Age appropriate, good hygiene, wearing appropriate clothes poor eye contact, uncooperative polite with questioning. Cooperation: Hostile and Guarded Psychomotor Behavior: psychomotor retardation Mood: im good Affect and affective range: flat Thought Process: preservative, logical Thought Content: logical within reality Speech: slow, low toned Intellectual Functioning: Average Suicidal Ideation: Denies SI Homicidal Ideation: Denies HI Impulse Control: Impaired Insight and Judgment: Impaired Memory: memory impaired Attention: Normal Orientation: Alert, oriented, Assessment and Plan - Patient Problems (1) Schizophrenia, paranoid Current Visit: Yes Status: Acute (2) Schizophrenia with prominent negative symptoms Current Visit: Yes Status: Acute RECOMMENDATIONS Haldol Decanoate 100mg IM started, continue to observe Patient admitted for inpatient psychiatric evaluation, medication adjustment and close monitoring The patient's behavior, mood, sleep and appetite will be closely monitored. Patient enrolled in individual and group therapeutic sessions and encouraged to attend. Patient provided with a safe and structured environment. Patient's physical health needs will be addressed by the Hospitalist. Hospitalist Consulted Labs including CBC, CMP, Lipid profile and Hemoglobin A1C levels ordered for baseline reference Social Assessment will be completed and the Vendor Specialist will work with patient and family to ensure a suitable and safe disposition Medication adjustment will be made as clinically indicated Usual Wellness Jainism/Preservation: - Start Trazodone 50 mg po QHS & 50 mg po QHS PRN between 10 PM & 2 AM for insomnia - Start Melatonin 5 mg po QHS to promote circadian rhythm - Start [place]-3 for brain health, reduce impulsivity, and as adjunctive treatment for mood disorder, continue upon discharge given overall benefits. - Start B1 prophylaxis with 200 mg po for 5 days The patient agreed on the treatment plan, understood the risk, benefit, alternative treatment, potential consequence of no treatment, and gave informed consent. Initial Certification Inpatient psych services: I certify that the inpatient psychiatric services are required for treatment that could reasonably be expected to improve the patient's condition. Estimated days:5 Legal Status: Voluntary Reaction to Hospitalization: Accepting Medications and Allergies Allergies Allergy/AdvReac Type Severity Reaction Status Date / Time No Known Allergies Allergy Verified 12/14/19 06:13 Home Medications Medication Instructions Recorded Confirmed Last Taken Type Haldol Decanoate 50 mg IM QWEEK #3 vial 12/21/19 02/13/20 Unknown Rx Active Meds: Active Medications Fish Oil (Fish Oil) 2,000 mg PO BID [facility] Last Admin: 02/17/20 21:32 Dose: Not Given Documented by: Valproic Acid (Depakene Liq) 250 mg PO BID [facility] Last Admin: 02/17/20 23:02 Dose: Not Given Documented by: Zolpidem Tartrate (Ambien) 2.5 mg PO QHS [facility] Last Admin: 02/18/20 06:26 Dose: Not Given Documented by: Results - Results Labs/Vitals: Laboratory Last Values POC Glucose 106 mg/dL (70-105) H 02/18/20 07:51 TSH 1.520 mlU/mL (0.270-4.200) 02/15/20 15:26 Hepatitis A IgM Ab Non-reactive (NonReactive) 02/15/20 15: Hep Bs Antigen Non-reactive (Negative) 02/15/20: Hep B Core IgM Ab Non-reactive (NonReactive) 02/15/20:26 Hepatitis C Antibody Non-reactive (NonReactive) 02/15/20 15:26 Last Vital Signs Temp 97.4 F L 02/17/20 20:10 Pulse 96 H 02/17/20 20:10 Resp 18 02/17/20 20:10 BP 92/58 02/17/20 20:10 Pulse Ox 100 02/17/20 20:10
[2020-02-18] MEDS: OMEGA-3 FATTY ACIDS/FISH OIL 1 GRAM CAP PO SCH ×3 (09:02→21:17)
[2020-02-18] MEDS ORDERED: LORazepam 1 MG TAB PO SCH (10:00)
[2020-02-18 12:53] LABS: Chol/HDL Ratio 6.09 %
--- NOTE | 2020-02-19 07:46 | Progress Note ---
Subjective Date of service: 02/19/20 Principal diagnosis: Schizophrenia with prominent negative symptoms Subjective Comment: Psych Nurse: 192 pt. received in activity room awake, alert and was dancing. pt. did not respond to staff when greeted, she was focused with the music and steadily dancing. pt. seems to be in a quiet mood. she was left alone, and informed will continue to monitor. Psych Progress HPI Patient seen this morning, seated in activity room patient reports she had a good night though her responses are delayed slowed patient denies any auditory visual hallucination and also denies depressed mood. Patient expresses desire to continue eating on a discussed with patient about her recent weight loss concern Reason for inpatient hospitalization: Nurse reports patient ate her meals after much persuasion, will continue to observe for improvement in her mood. IM 100mg haldol decanoate scheduled for Sunday Review of Symptoms: Constitutional: Negative for weight loss ENT: Negative for stridor Respiratory: Negative for cough or hemoptysis All other systems reviewed and are negative MENTAL STATUS EXAMINATION General Appearance and Behavior: Age appropriate, good hygiene, wearing appropriate clothes poor eye contact, uncooperative polite with questioning. Cooperation: Hostile and Guarded Psychomotor Behavior: psychomotor retardation Mood: im good Affect and affective range: flat Thought Process: preservative, logical Thought Content: logical within reality Speech: slow, low toned Intellectual Functioning: Average Suicidal Ideation: Denies SI Homicidal Ideation: Denies HI Impulse Control: Impaired Insight and Judgment: Impaired Memory: memory impaired Attention: Normal Orientation: Alert, oriented, Assessment and Plan - Patient Problems (1) Schizophrenia, paranoid Current Visit: Yes Status: Acute (2) Schizophrenia with prominent negative symptoms Current Visit: Yes Status: Acute RECOMMENDATIONS Haldol Decanoate 100mg IM second loading dose on Sunday and obsevre for 2-3 days before discharge. continue to observe Patient admitted for inpatient psychiatric evaluation, medication adjustment and close monitoring The patient's behavior, mood, sleep and appetite will be closely monitored. Patient enrolled in individual and group therapeutic sessions and encouraged to attend. Patient provided with a safe and structured environment. Patient's physical health needs will be addressed by the Hospitalist. Hospitalist Consulted Labs including CBC, CMP, Lipid profile and Hemoglobin A1C levels ordered for baseline reference Social Assessment will be completed and the Mosquito Sprayer will work with patient and family to ensure a suitable and safe disposition Medication adjustment will be made as clinically indicated Usual Wellness Latter-Day/Preservation: - Start Trazodone 50 mg po QHS & 50 mg po QHS PRN between 10 PM & 2 AM for insomnia - Start Melatonin 5 mg po QHS to promote circadian rhythm - Start [place]-3 for brain health, reduce impulsivity, and as adjunctive treatment for mood disorder, continue upon discharge given overall benefits. - Start B1 prophylaxis with 200 mg po for 5 days The patient agreed on the treatment plan, understood the risk, benefit, alternative treatment, potential consequence of no treatment, and gave informed consent. Initial Certification Inpatient psych services: I certify that the inpatient psychiatric services are required for treatment that could reasonably be expected to improve the patient's condition. Estimated days:e4 Legal Status: Voluntary Reaction to Hospitalization: Accepting Medications and Allergies Allergies Allergy/AdvReac Type Severity Reaction Status Date / Time No Known Allergies Allergy Verified 12/14/19 06:13 Home Medications Medication Instructions Recorded Confirmed Last Taken Type Haldol Decanoate 50 mg IM QWEEK #3 vial 12/21/19 02/13/20 Unknown Rx Active Meds: Active Medications Fish Oil (Fish Oil) 2,000 mg PO BID [facility] Last Admin: 02/18/20 21:17 Dose: Not Given Documented by: Results - Results Labs/Vitals: Laboratory Last Values POC Glucose 87 mg/dL (70-105) 02/19/20 06:41 Hemoglobin A1c 4.8 % (4-6) 02/15/20 15: Triglycerides 112 mg/dL (2-149) 02/15/20 15: Cholesterol 378 mg/dL (50-199) H 02/15/20: LDL Cholesterol Direct 283 mg/dL (50-130) H 02/15/20 15: HDL Cholesterol 62 mg/dL (40-59) H 02/15/20 15: Cholesterol/HDL Ratio 6.09 % 02/15/20: TSH 1.520 mlU/mL (0.270-4.200) 02/15/20: Hepatitis A IgM Ab Non-reactive (NonReactive) 02/15/20: Hep Bs Antigen Non-reactive (Negative) 02/15/20: Hep B Core IgM Ab Non-reactive (NonReactive) 02/15/20: Hepatitis C Antibody Non-reactive (NonReactive) 02/15/20 15:26 Last Vital Signs Temp 98.1 F 02/18/20 20:30 Pulse 95 H 02/18/20 20:30 Resp 20 02/18/20 20:30 BP 112/81 02/18/20 20:30 Pulse Ox 93 02/18/20 20:30
[2020-02-19] MEDS: OMEGA-3 FATTY ACIDS/FISH OIL 1 GRAM CAP PO SCH ×2 (09:03→21:41)
--- NOTE | 2020-02-20 08:18 | Progress Note ---
Subjective Date of service: 02/20/20 Principal diagnosis: Schizophrenia with prominent negative symptoms Subjective Comment: The patient's medical record was reviewed and the patient's progress was discussed with the nursing staff. The nurse note states the patient quietly in the activity room with no interaction with peers or staff. Responded to script writer that she is doing "pretty good." When script writer told her he is glad that she is improving in condition, pt states, "I am glad to know your name too," pointing to script writer's name [email or web address], then became mute again. Unable to access for pain, SI, or HI. During my interview with the patient this morning, she is in the dayroom. She appears in a good mood. She is smiling. She is up dancing to the music. She greets me as I walk up. She says she's "doing alright" when asked. The patient denies SI/HI or hallucinations of any kind when asked. She says "no, none of that" and continues to dance. Reason for continued inpatient treatment: The patient will be given Haldol Decanoate on Sunday to prevent relapse in condition and medication compliance. The patient will be monitored to assess for medication effectiveness and side effects. REVIEW OF SYSTEMS Constitutional: Negative for weight loss ENT: Negative for stridor Respiratory: Negative for cough or hemoptysis All other systems reviewed and are negative MENTAL STATUS EXAMINATION General Appearance and Behavior: Age appropriate, good hygiene, wearing appropriate clothes, good eye contact, cooperative polite with questioning. Mood: Good Affect and affective range: congruent Thought Process: Goal directed Thought Content: Illogical Speech: Normal volume, Regular rate and rhythm, Suicidal Ideation: Denies Homicidal Ideation: Denies Hallucinations: Denies Delusions: None elicited Impulse Control: Impaired Insight and Judgment: Limited Memory: Limited Orientation: Alert, oriented Assessment and Plan (1) Schizophrenia, paranoid Current Visit: Yes Status: Acute (2) Schizophrenia with prominent negative symptoms Current Visit: Yes Status: Acute Treatment Plan Patient admitted for inpatient psychiatric evaluation, medication adjustment and close monitoring The patient's behavior, mood, sleep and appetite will be closely monitored. Patient enrolled in individual and group therapeutic sessions and encouraged to attend. Patient provided with a safe and structured environment. Patient's physical health needs will be addressed by the Hospitalist. Hospitalist Consulted Labs including CBC, CMP, Lipid profile and Hemoglobin A1C levels ordered for baseline reference Social Assessment will be completed and the Cleaner And Polisher will work with patient and family to ensure a suitable and safe disposition Medication adjustment will be made as clinically indicated Haldol Decanoate 100mg IM second loading dose on Sunday Usual Wellness Evangelical/Preservation: - Start Trazodone 50 mg po QHS & 50 mg po QHS PRN between 10 PM & 2 AM for insomnia - Start Melatonin 5 mg po QHS to promote circadian rhythm - Start [place]-3 for brain health, reduce impulsivity, and as adjunctive treatment for mood disorder, continue upon discharge given overall benefits. - Start B1 prophylaxis with 200 mg po for 5 days The patient agreed on the treatment plan, understood the risk, benefit, alternative treatment, potential consequence of no treatment, and gave informed consent. Estimated days: 3 Post hospital care: primary care provider, psychiatric provider Medications and Allergies Allergies Allergy/AdvReac Type Severity Reaction Status Date / Time No Known Allergies Allergy Verified 12/14/19 06:13 Home Medications Medication Instructions Recorded Confirmed Last Taken Type Haldol Decanoate 50 mg IM QWEEK #3 vial 12/21/19 02/13/20 Unknown Rx Active Meds: Active Medications Atorvastatin Calcium (Lipitor) 20 mg PO QHS [facility] Last Admin: 02/19/20 21:41 Dose: Not Given Documented by: Fish Oil (Fish Oil) 2,000 mg PO BID [facility] Last Admin: 02/19/20 21:41 Dose: Not Given Documented by: Results - Results Labs/Vitals: Laboratory Last Values POC Glucose 88 mg/dL (70-105) 02/20/20 07:48 Hemoglobin A1c 4.8 % (4-6) 02/15/20 15:26 Triglycerides 112 mg/dL (2-149) 02/15/20 15:26 Cholesterol 378 mg/dL (50-199) H 02/15/20 15:26 LDL Cholesterol Direct 283 mg/dL (50-130) H 02/15/20 15:26 HDL Cholesterol 62 mg/dL (40-59) H 02/15/20 15:26 Cholesterol/HDL Ratio 6.09 % 02/15/20 15:26 Vitamin B12 756.6 pg/mL (211-911) 02/19/20 16:46 Folate 9.20 ng/mL (7.3-26.0) 02/19/20 16:46 TSH 1.640 mlU/mL (0.270-4.200) 02/19/20 16:46 Free T4 1.34 ng/dL (0.76-1.46) 02/19/20 16:46 Hepatitis A IgM Ab Non-reactive (NonReactive) 02/15/20 15: Hep Bs Antigen Non-reactive (Negative) 02/15/20: Hep B Core IgM Ab Non-reactive (NonReactive) 02/15/20 15: Hepatitis C Antibody Non-reactive (NonReactive) 02/15/20 15:26 Last Vital Signs Temp 98.7 F 02/19/20 22:00 Pulse 89 02/19/20 22:00 Resp 18 02/19/20 22:00 BP 112/77 02/19/20 22:00 Pulse Ox 98 02/19/20 22:00
[2020-02-20] MEDS: OMEGA-3 FATTY ACIDS/FISH OIL 1 GRAM CAP PO SCH ×2 (10:00→22:27)
[2020-02-21] MEDS ORDERED: HALOPERIDOL DECANOATE 100 MG/1 ML INJ IM NR (09:00)
[2020-02-21] MEDS: OMEGA-3 FATTY ACIDS/FISH OIL 1 GRAM CAP PO SCH ×3 (10:00→22:03)
--- NOTE | 2020-02-21 13:38 | Progress Note ---
Subjective Date of service: 02/21/20 Principal diagnosis: Schizophrenia with prominent negative symptoms Subjective Comment: The patient's medical record was reviewed and the patient's progress was discussed with the nursing staff. During my interview with the patient this morning, she is lying down in bed awake. She is laying on her side staring at the wall. She would not speak to me this morning. She did not acknowledge my presence while at her bedside. Reason for continued inpatient treatment: The patient will be given Haldol Decanoate today to help prevent relapse in condition and medication compliance. The patient will be monitored to assess for medication effectiveness and side effects. REVIEW OF SYSTEMS Could not obtain MENTAL STATUS EXAMINATION Could not obtain Assessment and Plan (1) Schizophrenia, paranoid Current Visit: Yes Status: Acute (2) Schizophrenia with prominent negative symptoms Current Visit: Yes Status: Acute Treatment Plan Patient admitted for inpatient psychiatric evaluation, medication adjustment and close monitoring The patient's behavior, mood, sleep and appetite will be closely monitored. Patient enrolled in individual and group therapeutic sessions and encouraged to attend. Patient provided with a safe and structured environment. Patient's physical health needs will be addressed by the Hospitalist. Hospitalist Consulted Labs including CBC, CMP, Lipid profile and Hemoglobin A1C levels ordered for baseline reference Social Assessment will be completed and the Flying Shear Operator will work with patient and family to ensure a suitable and safe disposition Medication adjustment will be made as clinically indicated Haldol Decanoate 100mg IM second loading today Usual Wellness Oriental Orthodox/Preservation: - Start Trazodone 50 mg po QHS & 50 mg po QHS PRN between 10 PM & 2 AM for insomnia - Start Melatonin 5 mg po QHS to promote circadian rhythm - Start [place]-3 for brain health, reduce impulsivity, and as adjunctive treatment for mood disorder, continue upon discharge given overall benefits. - Start B1 prophylaxis with 200 mg po for 5 days The patient agreed on the treatment plan, understood the risk, benefit, alternative treatment, potential consequence of no treatment, and gave informed consent. Estimated days: 3 Post hospital care: primary care provider, psychiatric provider Medications and Allergies Allergies Allergy/AdvReac Type Severity Reaction Status Date / Time No Known Allergies Allergy Verified 12/14/19 06:13 Home Medications Medication Instructions Recorded Confirmed Last Taken Type Haldol Decanoate 50 mg IM QWEEK #3 vial 12/21/19 02/13/20 Unknown Rx Active Meds: Active Medications Atorvastatin Calcium (Lipitor) 20 mg PO QHS [facility] Last Admin: 02/20/20 22:27 Dose: Not Given Documented by: Fish Oil (Fish Oil) 2,000 mg PO BID [facility] Last Admin: 02/20/20 22:27 Dose: Not Given Documented by: Results - Results Labs/Vitals: Laboratory Last Values POC Glucose 81 mg/dL (70-105) 02/21/20 08:01 Hemoglobin A1c 4.8 % (4-6) 02/15/20 15:26 Triglycerides 112 mg/dL (2-149) 02/15/20 15:26 Cholesterol 378 mg/dL (50-199) H 02/15/20 15:26 LDL Cholesterol Direct 283 mg/dL (50-130) H 02/15/20 15:26 HDL Cholesterol 62 mg/dL (40-59) H 02/15/20 15: Cholesterol/HDL Ratio 6.09 % 02/15/20 15:26 Vitamin B12 756.6 pg/mL (211-911) 02/19/20 16:46 Folate 9.20 ng/mL (7.3-26.0) 02/19/20 16:46 TSH 1.640 mlU/mL (0.270-4.200) 02/19/20 16:46 Free T4 1.34 ng/dL (0.76-1.46) 02/19/20 16:46 Hepatitis A IgM Ab Non-reactive (NonReactive) 02/15/20 15:26 Hep Bs Antigen Non-reactive (Negative) 02/15/20 15:26 Hep B Core IgM Ab Non-reactive (NonReactive) 02/15/20 15:26 Hepatitis C Antibody Non-reactive (NonReactive) 02/15/20 15:26 Last Vital Signs Temp 97.4 F L 02/20/20 19:34 Pulse 89 02/20/20 19:34 Resp 18 02/20/20 22:59 BP 140/78 02/20/20 19:34 Pulse Ox 100 02/20/20 19:34
--- NOTE | 2020-02-22 09:07 | Progress Note ---
Subjective Date of service: 02/22/20 Principal diagnosis: Schizophrenia with prominent negative symptoms Subjective Comment: The patient's medical record was reviewed and the patient's progress was discussed with the nursing staff. During my interview with the patient this morning, she is sitting in the dayroom. The nurse is assisting to drink her milk. She is staring straight ahead. She would not speak to me this morning or acknowledge me. Reason for continued inpatient treatment: The patient was not given haldol decanoate yesterday. The patient will be given today and will be monitored to assess for medication effectiveness and side effects. REVIEW OF SYSTEMS Could not obtain MENTAL STATUS EXAMINATION Could not obtain Assessment and Plan (1) Schizophrenia, paranoid Current Visit: Yes Status: Acute (2) Schizophrenia with prominent negative symptoms Current Visit: Yes Status: Acute Treatment Plan Patient admitted for inpatient psychiatric evaluation, medication adjustment and close monitoring The patient's behavior, mood, sleep and appetite will be closely monitored. Patient enrolled in individual and group therapeutic sessions and encouraged to attend. Patient provided with a safe and structured environment. Patient's physical health needs will be addressed by the Hospitalist. Hospitalist Consulted Labs including CBC, CMP, Lipid profile and Hemoglobin A1C levels ordered for baseline reference Social Assessment will be completed and the Home Energy Auditor will work with patient and family to ensure a suitable and safe disposition Medication adjustment will be made as clinically indicated Haldol Decanoate 100mg IM second loading today, the patient did not receive yesterday. Will reorder. Usual Wellness Mandaen/Preservation: - Start Trazodone 50 mg po QHS & 50 mg po QHS PRN between 10 PM & 2 AM for insomnia - Start Melatonin 5 mg po QHS to promote circadian rhythm - Start [place]-3 for brain health, reduce impulsivity, and as adjunctive treatment for mood disorder, continue upon discharge given overall benefits. - Start B1 prophylaxis with 200 mg po for 5 days The patient agreed on the treatment plan, understood the risk, benefit, alternative treatment, potential consequence of no treatment, and gave informed consent. Estimated days: 3 Post hospital care: primary care provider, psychiatric provider Medications and Allergies Allergies Allergy/AdvReac Type Severity Reaction Status Date / Time No Known Allergies Allergy Verified 12/14/19 06:13 Home Medications Medication Instructions Recorded Confirmed Last Taken Type Haldol Decanoate 50 mg IM QWEEK #3 vial 12/21/19 02/13/20 Unknown Rx Active Meds: Active Medications Atorvastatin Calcium (Lipitor) 20 mg PO QHS [facility] Last Admin: 02/21/20 22:04 Dose: Not Given Documented by: Fish Oil (Fish Oil) 2,000 mg PO BID [facility] Last Admin: 02/21/20 22:03 Dose: Not Given Documented by: Results - Results Labs/Vitals: Laboratory Last Values POC Glucose 74 mg/dL (70-105) 02/22/20 08:21 Hemoglobin A1c 4.8 % (4-6) 02/15/20 15:26 Triglycerides 112 mg/dL (2-149) 02/15/20 15: Cholesterol 378 mg/dL (50-199) H 02/15/20 15:26 LDL Cholesterol Direct 283 mg/dL (50-130) H 02/15/20 15: HDL Cholesterol 62 mg/dL (40-59) H 02/15/20 15: Cholesterol/HDL Ratio 6.09 % 02/15/20 15: Vitamin B12 756.6 pg/mL (211-911) 02/19/20 16:46 Folate 9.20 ng/mL (7.3-26.0) 02/19/20 16:46 TSH 1.640 mlU/mL (0.270-4.200) 02/19/20 16:46 Free T4 1.34 ng/dL (0.76-1.46) 02/19/20 16:46 Hepatitis A IgM Ab Non-reactive (NonReactive) 02/15/20 15:26 Hep Bs Antigen Non-reactive (Negative) 02/15/20 15:26 Hep B Core IgM Ab Non-reactive (NonReactive) 02/15/20 15:26 Hepatitis C Antibody Non-reactive (NonReactive) 02/15/20 15:26 Last Vital Signs Temp 97.5 F L 02/21/20 19:52 Pulse 96 H 02/21/20 19:52 Resp 16 02/21/20 19:52 BP 118/85 02/21/20 19:52 Pulse Ox 100 02/21/20 19:52
[2020-02-22] MEDS ORDERED: LORazepam 2 MG/ML VIAL IM ONE (09:30)
[2020-02-22] MEDS: HALOPERIDOL DECANOATE 100 MG/1 ML INJ IM ONE ×2 (12:07→18:17)
[2020-02-22] MEDS: OMEGA-3 FATTY ACIDS/FISH OIL 1 GRAM CAP PO SCH ×2 (12:14→21:29)
[2020-02-22 13:30] LABS: Vitamin D, 25-OH, D2 10 ng/mL
[2020-02-23] MEDS: OMEGA-3 FATTY ACIDS/FISH OIL 1 GRAM CAP PO SCH ×2 (09:40→22:25)
[2020-02-24] MEDS ORDERED: OMEGA-3 FATTY ACIDS/FISH OIL 1 GRAM CAP PO ONE (09:54)
[2020-02-24 17:41] VITALS: BP 107/68
--- NOTE | 2020-02-24 18:08 | Discharge Summary ---
Providers - Providers Date of Admission: 02/13/20 22:48 Date of discharge: 02/24/20 Attending physician: MAIA ANTONY MD 02/13/20 15:18 Consult to Physician [CONS] Routine Comment: Consulting Provider: DES FORBES Physician Instructions: Reason For Exam: Medical Management Primary care physician: MACHINE WIPER Hospitalization Reason for admission: paranoid Admitting Diagnosis: F20.0 - PARANOID SCHIZOPHRENIA Condition: Stable Hospital course: The patient was provided psychiatric care that consisted of medication, side effects and adverse reaction monitoring, medical care, improved social skills and social support. Disposition: DC-01 TO HOME OR SELFCARE Time spent for discharge: 38 Allergies/Adverse Reactions: Allergies No Known Allergies Allergy (Verified 12/14/19 06:13) Vital Signs: Last Vital Signs Temp 98.6 F 02/24/20 07:31 Pulse 86 02/24/20 07:31 Resp 18 02/24/20 07:31 BP 107/68 02/24/20 07:31 Pulse Ox 98 02/24/20 07:31 Last Lab: Laboratory Last Values POC Glucose 88 mg/dL (70-105) 02/24/20 07:49 Hemoglobin A1c 4.8 % (4-6) 02/15/20 15:26 Triglycerides 112 mg/dL (2-149) 02/15/20 15:26 Cholesterol 378 mg/dL (50-199) H 02/15/20 15:26 LDL Cholesterol Direct 283 mg/dL (50-130) H 02/15/20 15:26 HDL Cholesterol 62 mg/dL (40-59) H 02/15/20 15:26 Cholesterol/HDL Ratio 6.09 % 02/15/20 15:26 Vitamin B12 756.6 pg/mL (211-911) 02/19/20 16:46 25-OH Vitamin D Total 29 ng/mL (30-100) L 02/19/20 16:46 25-Hydroxy Vitamin D2 10 ng/mL 02/19/20 16:46 25-Hydroxy Vitamin D3 19 ng/mL 02/19/20 16:46 Folate 9.20 ng/mL (7.3-26.0) 02/19/20 16:46 TSH 1.640 mlU/mL (0.270-4.200) 02/19/20 16:46 Free T4 1.34 ng/dL (0.76-1.46) 02/19/20 16:46 Hepatitis A IgM Ab Non-reactive (NonReactive) 02/15/20 15:26 Hep Bs Antigen Non-reactive (Negative) 02/15/20 15:26 Hep B Core IgM Ab Non-reactive (NonReactive) 02/15/20 15:26 Hepatitis C Antibody Non-reactive (NonReactive) 02/15/20 15:26 Core Measure Documentation - Palliative Care Palliative Care/ Comfort Measures: Not Applicable - Core Measures Any of the following diagnoses?: none Exam - Constitutional Vitals: Temp Pulse Resp BP Pulse Ox 98.6 F 86 18 107/68 98 02/24/20 07:31 02/24/20 07:31 02/24/20 07:31 02/24/20 07:31 02/24/20 07:31 General appearance: Present: no acute distress - EENT Eyes: Present: PERRL, EOM intact ENT: hearing intact, clear oral mucosa - Neck Neck: Present: supple, normal ROM - Respiratory Respiratory effort: normal Plan Activity: advance as tolerated Weight Bearing Status: Weight Bear as Tolerated Care Plan Goals: maintain good and stable mental health Health Concerns: Dementia, acute reaal failure Assessment: paranoid schizophrenia Follow up with: PRIMARY CARE, [Primary Care Provider] - 7 Days
== END 2020-02-24 17:45 | disposition home or self-care (01) | DRG 885 ==
LOC: UNDOADMIN 15:06 → 3A 15:06 → 5A 22:48
PROVIDERS: ADMIT Psychiatry & Neurology Psychiatry; ATTEND Psychiatry & Neurology Psychiatry
DX: F20.0 Paranoid schizophrenia (principal); F03.91 Unspecified dementia, unspecified severity, with behavioral disturbance; Z85.6 Personal history of leukemia; E78.5 Hyperlipidemia, unspecified
CPT/HCPCS: 36415; 80048; 80061; 80074; 80307; 80320; 81001; 82306; 82607; 82747; 82962; 83036; 84132; 84439; 84443; 85007; 85025; 85027; 96372; G0378; A9270-GY; G0480; J1631; J2060; J3486; U0003